=== PATIENT | female | born 1940 | race Caucasian/White ===

== ENCOUNTER 2022-04-29 16:14 | Inpatient (IN) ==
[2022-04-29] MEDS ORDERED: ALBUTEROL HFA 8 GM INHALER INH ONE (16:22)
[2022-04-29] MEDS ORDERED: dexAMETHasone**PF** 10 MG/ML VIAL IV ONE (16:22)
--- NOTE | 2022-04-29 16:46 | Emergency Department Note ---
Impression & Plan Wheezing, Hypoxia, Breathlessness ED Provider Note Provider: Manuel Calero MD DATE OF SERVICE: 04/29/2022 CHIEF COMPLAINT: Shortness of breath, cough, weakness, nausea vomiting and diarrhea HISTORY OF PRESENT ILLNESS: Patient is a 81-year-old female past medical history including Ladd's esophagus, CKD, CAD, hypertension distant former smoker who was at home presents today via ambulance reporting over the past several weeks she has been feeling ill. Due to the last week not well and tested positive for COVID about a week ago. Completed a 5-day course of pack Slo-Bid without real change in symptoms. Several weeks ago was on a course of prednisone as well as doxycycline without real improvement. Has developed some decreased smell as well as nausea vomiting and diarrhea. Cough with some sputum that is brown to yellow. Feeling somewhat wheezy at times. Weak but no falls reported. Denies chest pain or abdominal pain although states she had a little abdominal pain when vomiting earlier. EMS noted she was 90% on room air at her house. She and small skin tear to her left elbow on extrication from the house for EMS this is bandaged and she is without significant pain here. REVIEW OF SYSTEMS: A total of 10 review of systems was obtained and negative except as stated above in the HPI. PAST MEDICAL HISTORY: As noted above MEDICATIONS: Reviewed home medications SOCIAL HISTORY: Distant former smoker, , lives at home with PHYSICAL EXAM: GENERAL: alert and oriented in no acute distress on stretcher somewhat fatigued appearing Head: normocephalic and atraumatic EYES: No injection, discharge or icterus. NECK: Trachea midline. ENT: Mucous membranes pink and moist. LUNGS: Airway patent. No retractions. Breath sounds with some diffuse wheezing HEART: Regular rate and rhythm. No chest wall tenderness ABDOMEN: Soft and non-tender, without guarding or rebound. No masses appreciated SKIN: Acyanotic, warm, dry, without rashes EXTREMITIES: Without swelling, tenderness or deformity NEUROLOGICAL: No focal deficits. No aphasia. No facial droop or slurred speech. EK bpm sinus rhythm occasional PVC. No acute ST segment elevation noted although there is a fair amount of artifact. QTc 451. CONTINUOUS CARDIAC MONITORING: was ordered and showed a heart rate of 90s-100s bpm in normal sinus rhythm to sinus tachycardia with occasional PVC Patient's laboratory studies and imaging reviewed. Differential includes Infection, dehydration, metabolic abnormality, hypo/hyperglycemia, electrolyte disturbance, anemia, hypoxia, cardiac sources, intracerebral event, toxicologic, neurologic, as well as other pathologies. IMPRESSION/MEDICAL DECISION MAKING: Patient has a positive recently for COVID. Is vaccinated. Pack Slo-Bid without improvement. History of some breathing issues developing even before this over the past about a month. Completed doxycycline and steroids without improvement. No significant evidence of fluid overload the extremities. Wheezy upon arrival. Given some albuterol initially as well as some dexamethasone steroid. Chest x-ray and basic labs ordered as well as cultures. No evidence of significant leg swelling and doubt DVT. Given her wheezing and other symptoms that seem more infectious, lower suspicion for PE at this time. Blood work here with leukocytosis of 15.9. Chest x-ray report questions some peripheral densities in the lung bases possibly representing viral pneumonitis. Interestingly COVID test is negative here but was on pack Slo-Bid. Some mild hypokalemia and hyponatremia noted. Stable renal function. Lactate normal. Slight AST ALT elevation also notable. Again could be viral related. Troponin not elevated. No evidence of pancreatitis with normal lipase. With her significant breathing issues leukocytosis and the x-ray findings will cover with doxycycline and ceftriaxone at this time. Patient was eager to go home but becomes hypoxic without supplementation here. Given this discussed with her staying. Updated her daughter via phone. Hospitalist contacted. DIAGNOSIS: Shortness of breath with hypoxia, pneumonia, wheezing DISPOSITION: Hospitalist will evaluate Patient was agreeable with this plan. Past Med/Surg History Medical History CAD (coronary artery disease) GERD (gastroesophageal reflux disease) HLD (hyperlipidemia) HTN (hypertension) Surgical History H/O heart artery stent Family History Other Hypertension Social History Smoking Status: Never smoker Tobacco Type: Cigarettes Hx Alcohol Use: Yes Alcohol type: beer Hx Substance Use: No Preferred Language: Guamanian Communication Ability: Effective Can Cleaner Required: No Beliefs That Will Affect Care: None Current Living Situation: Spouse Other Information That Helps Us Care for You: No Feels Safe at Home: Yes Safety Concerns: Feels Safe At This Time Assistive Devices: Denture - Upper, Denture - Lower and Glasses Allergies Allergies Allergy/AdvReac Type Severity Reaction Status Date / Time Penicillins Allergy Unknown RASH Verified 11/21/20 10:12 adhesive Allergy ITCHY Verified 11/21/20 10:12 Bactrim Allergy RASH Verified 01/06/13 08:59 hydroxyzine Allergy UNKNOWN Verified 11/21/20 10:12 Sulfa (Sulfonamide Allergy RASH Verified 11/21/20 10:12 Antibiotics) sulfamethoxazole [Bactrim] Allergy RASH Verified 11/21/20 10:12 trimethoprim [Bactrim] Allergy RASH Verified 11/21/20 10:12 morphine AdvReac Mild VOMITING Verified 11/21/20 10:12 Home Meds Home Medications Medication Instructions Recorded Confirmed aspirin 81 mg tablet,delayed 81 mg PO PM ##0 12/30/08 04/29/22 release omeprazole 20 mg tablet,delayed 20 mg PO DAILY ##0 12/30/08 04/29/22 release simvastatin 20 mg tablet 20 mg PO PM ##0 12/30/08 04/29/22 acetaminophen 500 mg tablet 500 mg PO Q6H PRN Headache 11/21/20 04/29/22 (Tylenol Extra Strength) atenolol 50 mg tablet 50 mg PO DAILY 04/29/22 04/29/22 escitalopram oxalate 10 mg tablet 10 mg PO DAILY 04/29/22 04/29/22 Previous Rx's Medication Instructions Recorded albuterol sulfate 90 mcg/actuation 2 puff inhalation QID PRN 11/21/20 aerosol inhaler shortness of breath or wheezing #1 inhaler Results & Data (ED) Vital Signs Vital Signs - 24 hr 04/29/22 16:40 04/29/22 16:40 04/29/22 16:40 Temperature 36.7 C Temperature Source Oral Pulse Rate 94 H Pulse Rate [Right Finger] Respiratory Rate 29 H Respiratory Effort / Characteristics Non-Labored Respiratory Depth Normal Normal Respiratory Pattern Regular Regular Blood Pressure 142/72 H Blood Pressure [Right Arm] Blood Pressure Mean 95 Blood Pressure Mean [Right Arm] Pulse Oximetry 97 Oxygen Delivery Method Room Air Room Air Oxygen Flow Rate Sepsis Recent Fever Within 48 Hours No Sepsis New/Unexplained Change in Mental Status N/A Sepsis Action Taken by Nursing No Action Required 04/29/22 17:39 04/29/22 18:17 04/29/22 18:36 Temperature Temperature Source Pulse Rate Pulse Rate [Right Finger] 93 H 91 H 105 H Respiratory Rate 26 H 22 Respiratory Effort / Characteristics Respiratory Depth Respiratory Pattern Blood Pressure Blood Pressure [Right Arm] 130/86 149/81 H Blood Pressure Mean Blood Pressure Mean [Right Arm] 100 103 Pulse Oximetry 96 86 L 95 Oxygen Delivery Method Nasal Cannula Room Air Nasal Cannula Oxygen Flow Rate 2 2 Sepsis Recent Fever Within 48 Hours Sepsis New/Unexplained Change in Mental Status Sepsis Action Taken by Nursing Laboratory Data Result diagrams: 04/29/22 16:29 04/29/22 16:29 Lab Results 04/29/22 04/29/22 04/29/22 Range/Units 16:22 16:29 16:29 WBC 15.98 H (4.8-10.8) K/ul RBC 4.33 (3.93-5.22) M/uL Hgb 13.6 (12.0-16.0) g/dl Hct 39.7 (34.1-44.9) % MCV 91.7 (80.0-100.0) fL MCH 31.4 (25.0-34.0) pg MCHC 34.3 (32.0-36.0) g/dL RDW Std Deviation 41.1 (36.4-46.3) fL RDW Coeff of Remigio 12.2 (11.5-14.5) % Plt Count 388 (130-400) K/uL MPV 9.2 L (9.4-12.3) fL Immature Gran % (Auto) 0.6 % Neut % (Auto) 76.8 % Lymph % (Auto) 12.7 % Crane % (Auto) 8.8 % Eos % (Auto) 0.8 % Baso % (Auto) 0.3 % Neut # (Auto) 12.26 H (1.4-6.5) K/uL Lymph # (Auto) 2.03 (1.2-3.4) K/uL Crane # (Auto) 1.41 H (0.24-0.82) K/uL Eos # (Auto) 0.13 (0-0.50) K/uL Baso # (Auto) 0.05 (0-0.2) K/uL Immature Gran # (Auto) 0.10 H (0.00-0.02) K/uL PT 11.3 (9.0-12.0) Seconds INR 1.1 (0.9-1.1) Sodium (136-145) mmol/L Potassium (3.5-5.1) mmol/L Chloride (98-107) mmol/L Carbon Dioxide (21-32) mmol/L Anion Gap (3-11) BUN (6-23) mg/dl Creatinine (0.6-1.2) mg/dl Est Cr Clr Drug Dosing ml/min Est GFR ( Amer) ml/min Est GFR (Non-Af Amer) ml/min BUN/Creatinine Ratio (10-20) Glucose (70-99(Fasting)) mg/dl Lactate (0.4-2.0) mmol/L Calcium (8.5-10.1) mg/dl Total Bilirubin (0.2-1.0) mg/dl AST (13-39) U/L ALT (7-52) U/L Alkaline Phosphatase (34-104) U/L Total Creatine Kinase (26-192) U/L Troponin I High Sens (0-14) pg/ml C-Reactive Protein (0-0.5) mg/dl Total Protein (6.0-8.3) gm/dl Albumin (3.4-5.0) gm/dl Globulin (2.5-4.0) gm/dl Albumin/Globulin Ratio (0.9-2) Lipase (11-82) U/L Procalcitonin (0-0.5) ng/ml SARS-CoV-2, RNA, NAAT NEGATIVE (NEGATIVE) 04/29/22 04/29/22 04/29/22 Range/Units 16:29 16:29 16:29 WBC (4.8-10.8) K/ul RBC (3.93-5.22) M/uL Hgb (12.0-16.0) g/dl Hct (34.1-44.9) % MCV (80.0-100.0) fL MCH (25.0-34.0) pg MCHC (32.0-36.0) g/dL RDW Std Deviation (36.4-46.3) fL RDW Coeff of Remigio (11.5-14.5) % Plt Count (130-400) K/uL MPV (9.4-12.3) fL Immature Gran % (Auto) % Neut % (Auto) % Lymph % (Auto) % Crane % (Auto) % Eos % (Auto) % Baso % (Auto) % Neut # (Auto) (1.4-6.5) K/uL Lymph # (Auto) (1.2-3.4) K/uL Crane # (Auto) (0.24-0.82) K/uL Eos # (Auto) (0-0.50) K/uL Baso # (Auto) (0-0.2) K/uL Immature Gran # (Auto) (0.00-0.02) K/uL PT (9.0-12.0) Seconds INR (0.9-1.1) Sodium 133 L (136-145) mmol/L Potassium 3.2 L (3.5-5.1) mmol/L Chloride 94 L (98-107) mmol/L Carbon Dioxide 29 (21-32) mmol/L Anion Gap 10 (3-11) BUN 21 (6-23) mg/dl Creatinine 0.90 (0.6-1.2) mg/dl Est Cr Clr Drug Dosing 46.1 ml/min Est GFR ( Amer) 68.5 ml/min Est GFR (Non-Af Amer) 59.1 ml/min BUN/Creatinine Ratio 23.3 H (10-20) Glucose 120 H (70-99(Fasting)) mg/dl Lactate 1.0 (0.4-2.0) mmol/L Calcium 9.2 (8.5-10.1) mg/dl Total Bilirubin 0.5 (0.2-1.0) mg/dl AST 68 H (13-39) U/L ALT 54 H (7-52) U/L Alkaline Phosphatase 43 (34-104) U/L Total Creatine Kinase (26-192) U/L Troponin I High Sens 8.9 (0-14) pg/ml C-Reactive Protein (0-0.5) mg/dl Total Protein 7.7 (6.0-8.3) gm/dl Albumin 3.8 (3.4-5.0) gm/dl Globulin 3.9 (2.5-4.0) gm/dl Albumin/Globulin Ratio 1.0 (0.9-2) Lipase 13 (11-82) U/L Procalcitonin 0.20 (0-0.5) ng/ml SARS-CoV-2, RNA, NAAT (NEGATIVE) 04/29/22 Range/Units 16:29 WBC (4.8-10.8) K/ul RBC (3.93-5.22) M/uL Hgb (12.0-16.0) g/dl Hct (34.1-44.9) % MCV (80.0-100.0) fL MCH (25.0-34.0) pg MCHC (32.0-36.0) g/dL RDW Std Deviation (36.4-46.3) fL RDW Coeff of Remigio (11.5-14.5) % Plt Count (130-400) K/uL MPV (9.4-12.3) fL Immature Gran % (Auto) % Neut % (Auto) % Lymph % (Auto) % Crane % (Auto) % Eos % (Auto) % Baso % (Auto) % Neut # (Auto) (1.4-6.5) K/uL Lymph # (Auto) (1.2-3.4) K/uL Crane # (Auto) (0.24-0.82) K/uL Eos # (Auto) (0-0.50) K/uL Baso # (Auto) (0-0.2) K/uL Immature Gran # (Auto) (0.00-0.02) K/uL PT (9.0-12.0) Seconds INR (0.9-1.1) Sodium (136-145) mmol/L Potassium (3.5-5.1) mmol/L Chloride (98-107) mmol/L Carbon Dioxide (21-32) mmol/L Anion Gap (3-11) BUN (6-23) mg/dl Creatinine (0.6-1.2) mg/dl Est Cr Clr Drug Dosing ml/min Est GFR ( Amer) ml/min Est GFR (Non-Af Amer) ml/min BUN/Creatinine Ratio (10-20) Glucose (70-99(Fasting)) mg/dl Lactate (0.4-2.0) mmol/L Calcium (8.5-10.1) mg/dl Total Bilirubin (0.2-1.0) mg/dl AST (13-39) U/L ALT (7-52) U/L Alkaline Phosphatase (34-104) U/L Total Creatine Kinase 34 (26-192) U/L Troponin I High Sens (0-14) pg/ml C-Reactive Protein 8.59 H (0-0.5) mg/dl Total Protein (6.0-8.3) gm/dl Albumin (3.4-5.0) gm/dl Globulin (2.5-4.0) gm/dl Albumin/Globulin Ratio (0.9-2) Lipase (11-82) U/L Procalcitonin (0-0.5) ng/ml SARS-CoV-2, RNA, NAAT (NEGATIVE) Administered Medications Albuterol (Albuterol 0.083% Nebu Soln 3 Ml Vial) 2.5 mg NEB Q4R LUPE; Protocol Stop: 05/29/22 22:59 Last Admin: 04/29/22 22:54 Dose: 2.5 mg Documented By: LG Discontinued Medications Albuterol (Albuterol Hfa 8 Gm Inhaler) 4 puffs INH NOW ONE Stop: 04/29/22 16:23 Last Admin: 04/29/22 16:49 Dose: 4 puffs Documented By: ASW Albuterol (Albut/Ipratrop 3mg/0.5mg Neb 3 Ml Vial) 3 ml NEB NOW STA; Protocol Stop: 04/29/22 17:59 Last Admin: 04/29/22 18:18 Dose: 3 ml Documented By: ASW Dexamethasone Sodium Phosphate (DexamethasonePf 10 Mg/Ml Vial) 6 mg IV NOW ONE Stop: 04/29/22 16:23 Last Admin: 04/29/22 16:49 Dose: 6 mg Documented By: ASW Doxycycline Hyclate (Doxycycline Hyclate 100 Mg Cap) 100 mg PO NOW STA Stop: 04/29/22 17:59 Last Admin: 04/29/22 18:18 Dose: 100 mg Documented By: ASW Ceftriaxone Sodium (Rocephin) 1,000 mg in 50 mls @ 100 mls/hr IV NOW STA Stop: 04/29/22 18:42 Last Infusion: 04/29/22 19:10 Dose: 0 mls/hr Documented By: Admin: 04/29/22 18:38 Dose: 100 mls/hr Documented By: ASW Potassium Chloride (K Charly / Wtr) 10 meq in 100 mls @ 100 mls/hr IV ONE ONE; Protocol Stop: 04/29/22 20:07 Last Infusion: 04/29/22 20:27 Dose: 0 mls/hr Documented By: Admin: 04/29/22 19:18 Dose: 100 mls/hr Documented By: AN Imaging Data Radiologist's Impression: Chest X-Ray 04/29/22 16:22 XR chest 1V portable HISTORY: Shortness of breath, cough, covid COMPARISON: Chest 11/21/2020. FINDINGS: No pneumothorax. No pleural fusions. The heart is normal in size. No evidence for pulmonary edema. There are few small peripheral densities within the lung bases which may represent a viral pneumonitis. IMPRESSION: A few small peripheral densities within the lung bases likely representing a viral pneumonitis. ACT 112: Negative or not required by law. Electronically signed by: Rajeev Clark M.D. 04/29/2022 4:48 PM Discharge Plan Visit Data Chief Complaint: Shortness of Breath/Dyspnea Stated Complaint: SOB ED Provider: Manuel Calero Discharge Problem: Wheezing, Hypoxia, Breathlessness Patient Disposition: Admitted As Inpatient Discharge Instructions Interventions: ED Discharge Assessment Last Done: 04/29/22 21:11
--- NOTE | 2022-04-29 16:51 | XRay Report ---
XR chest 1V portable HISTORY: Shortness of breath, cough, covid COMPARISON: Chest 11/21/2020. FINDINGS: No pneumothorax. No pleural fusions. The heart is normal in size. No evidence for pulmonary edema. There are few small peripheral densities within the lung bases which may represent a viral pn eumonitis. IMPRESSION: A few small peripheral densities within the lung bases likely representing a viral pneumonitis. ACT 112: Negative or not required by law. Electronically signed by: Rajeev Clark M.D. 04/29/2022 4:48 PM
[2022-04-29 16:55] LABS: Basophils # (auto) 0.05 K/uL (0-0.2); Basophils % (auto) 0.3 %; Eosinophils # (auto) 0.13 K/uL (0-0.50); Eosinophils % (auto) 0.8 %; Hematocrit (blood only) 39.7 % (34.1-44.9); Hemoglobin 13.6 g/dl (12.0-16.0); Immature Granulocytes % (auto) 0.6 %; Lymphocytes # (auto) 2.03 K/uL (1.2-3.4); Lymphocytes % (auto) 12.7 %; Mean Corpuscular Hemoglobin 31.4 pg (25.0-34.0); Mean Corpuscular Hgb Conc 34.3 g/dL (32.0-36.0); Mean Corpuscular Volume 91.7 fL (80.0-100.0); Mean Platelet Volume 9.2 fL (9.4-12.3); Monocytes # (auto) 1.41 K/uL (0.24-0.82); Monocytes % (auto) 8.8 %; Neutrophils # (auto) 12.26 K/uL (1.4-6.5); Neutrophils % (auto) 76.8 %; Platelet Count 388 K/uL (130-400); RDW Coefficient of Variation 12.2 % (11.5-14.5); RDW Standard Deviation 41.1 fL (36.4-46.3); Red Blood Count 4.33 M/uL (3.93-5.22); White Blood Count 15.98 K/ul (4.8-10.8)
[2022-04-29 17:02] LABS: INR 1.1 (0.9-1.1); Prothrombin Time 11.3 Seconds (9.0-12.0)
[2022-04-29 17:13] LABS: Albumin Level 3.8 gm/dl (3.4-5.0); BUN Creatinine Ratio 23.3 (10-20); Bilirubin,Total 0.5 mg/dl (0.2-1.0); Calcium 9.2 mg/dl (8.5-10.1); Creatinine Clr Calc Pharmacy 46.1 ml/min; Est GFR (African American) 68.5 ml/min; Est GFR (Non-African American) 59.1 ml/min; Globulin 3.9 gm/dl (2.5-4.0); Potassium 3.2 mmol/L (3.5-5.1); Total Protein 7.7 gm/dl (6.0-8.3)
[2022-04-29 17:18] LABS: Troponin I High Sensitivity 8.9 pg/ml (0-14)
[2022-04-29 17:55] LABS: C Reactive Protein 8.59 mg/dl (0-0.5)
[2022-04-29] MEDS ORDERED: ALBUT/IPRATROP 3MG/0.5MG NEB 3 ML VIAL NEB STA (17:58)
[2022-04-29] MEDS ORDERED: DOXYCYCLINE HYCLATE 100 MG CAP PO STA (17:58)
[2022-04-29] MEDS ORDERED: cefTRIAXone SODIUM 1,000 MG/50 ML BAG IV STA (18:13)
[2022-04-29] MEDS ORDERED: POTASSIUM CHLORIDE / WTR 10 MEQ/100 ML PLCT IV ONE (19:08)
--- NOTE | 2022-04-29 19:30 | History & Physical Report ---
Date of Service April 29, 2022 Assessment & Plan (1) Acute respiratory failure: (2) Electrolyte abnormality: (3) Elevated LFTs: (4) CAD (coronary artery disease): (5) HTN (hypertension): (6) HLD (hyperlipidemia): (7) GERD (gastroesophageal reflux disease): Plan Acute respiratory failure: ---- likely 2/2 COVID pneumonia -pt tested positive for COVID on 04/21 s/p paxlovid -CXR showed few small peripheral densities likely viral pneumonitis -pts COVID PCR is neg in the hospital. However due to elevated CRP (8.59), age and recent hx of COVID will treat for COVID pneumonia -Decadron 6mg q24hr -Procal is neg therefore will discontinue abx -repeat CRp -will do albuterol q4hr nebs, mucinex BID, flutter valve QID -will put pt on isolation -Lovenox for DVT ppx Electrolytes abnormalities and elevated LFTs: -hypoK+: repleted -Elevated LFTs: no abd symptoms, likely 2/2 recent paxlovid use -will repeat CMP CAD s/p stent: -continue statin, aspirin HTN/Anxiety/HLD/GERD: -continue home meds Diet: Heart healthy DVT PPx: Lovenox Code Status: FULL CODE Emergency Contact: : Donaldo [phone] History of Present Illness Chief Complaint: cough and SOB Primary Care Provider: Best Simpson MD Pt is a 81 y/o F with hx of CAD s/p Stent, CKD III, HTN, HLD, DDD, HLD, GERD came to the ER with worsening cough and SOB. Per pt she has been having cough for almost 3 weeks. About 8 days ago her cough got worse therefore she did home COVID test. Which came back positive and started on paxlovid by PCP. Pt completed the paxlovid. However her SOB got worse today. At bedside: she complained of cough, and SOB. Denied any abd pain, N/V, diarrhea or rash. Per pt her home COVID test was positive on 04/21 therefore received paxlovid from PCP -completed 3 days ago Allergies Allergy/AdvReac Type Severity Reaction Status Date / Time Penicillins Allergy Unknown RASH Verified 11/21/20 10:12 adhesive Allergy ITCHY Verified 11/21/20 10:12 Bactrim Allergy RASH Verified 01/06/13 08:59 hydroxyzine Allergy UNKNOWN Verified 11/21/20 10:12 Sulfa (Sulfonamide Allergy RASH Verified 11/21/20 10:12 Antibiotics) sulfamethoxazole [Bactrim] Allergy RASH Verified 11/21/20 10:12 trimethoprim [Bactrim] Allergy RASH Verified 11/21/20 10:12 morphine AdvReac Mild VOMITING Verified 11/21/20 10:12 Home Medications Medication Instructions Recorded Confirmed Type aspirin 81 mg tablet,delayed 81 mg PO PM ##0 12/30/08 04/29/22 History release omeprazole 20 mg tablet,delayed 20 mg PO DAILY ##0 12/30/08 04/29/22 History release simvastatin 20 mg tablet 20 mg PO PM ##0 12/30/08 04/29/22 History acetaminophen 500 mg tablet 500 mg PO Q6H PRN Headache 11/21/20 04/29/22 History (Tylenol Extra Strength) albuterol sulfate 90 mcg/actuation 2 puff inhalation QID PRN 11/21/20 04/29/22 Rx aerosol inhaler shortness of breath or wheezing #1 inhaler atenolol 50 mg tablet 50 mg PO DAILY 04/29/22 04/29/22 History escitalopram oxalate 10 mg tablet 10 mg PO DAILY 04/29/22 04/29/22 History Past Med/Surg History Medical History CAD (coronary artery disease) GERD (gastroesophageal reflux disease) HLD (hyperlipidemia) HTN (hypertension) Surgical History H/O heart artery stent Family History Other Hypertension Social History Smoking Status: Never smoker Tobacco Type: Cigarettes Preferred Language: Lithuanian Feels Safe at Home: Yes Review of Systems Review of Systems: At least 10 Review of systems were reviewed and all negative except as indicated in HPI Physical Exam Physical Exam: General:.NC in place and pt was in mild acute respiratory distress, well nourished, average body habitus HEENT:. Normocephalic and atraumatic, Normal Conjunctiva, EOMI, Sclera is non- icteric Lungs:.fair air entry b/l with diffuse respiratory wheezing and rales Heart:. Normal S1, S2, no murmur Abdominal:. ND, Soft, NT MSK:. No deformities of UE and LE, No leg edema Psych:. AAOx3, normal affect Results & Data Results & Data ([facility]) Vital Signs (Past 12 Hours) Vital Signs Temp Pulse Pulse Resp BP BP Pulse Ox 04/29/22 18:36 105 H 22 149/81 H 95 04/29/22 18:17 91 H 22 86 L 04/29/22 17:39 93 H 26 H 130/86 96 04/29/22 16:40 04/29/22 16:40 36.7 C 94 H 29 H 142/72 H 97 O2 Del Method O2 Flow Rate 04/29/22 18:36 Nasal Cannula 2 04/29/22 18:17 Room Air 04/29/22 17:39 Nasal Cannula 2 04/29/22 16:40 Room Air 04/29/22 16:40 Room Air Laboratory Results Short CBC 04/29/22 Range/Units 16:29 WBC 15.98 H (4.8-10.8) K/ul Hgb 13.6 (12.0-16.0) g/dl Hct 39.7 (34.1-44.9) % Plt Count 388 (130-400) K/uL BMP 04/29/22 16:29 Sodium 133 L Potassium 3.2 L Chloride 94 L Carbon Dioxide 29 BUN 21 Creatinine 0.90 Glucose 120 H Calcium 9.2 Cardiac Enzymes 04/29/22 Range/Units 16:29 Total Creatine Kinase 34 (26-192) U/L Liver Function 04/29/22 Range/Units 16:29 Total Bilirubin 0.5 (0.2-1.0) mg/dl AST 68 H (13-39) U/L ALT 54 H (7-52) U/L Alkaline Phosphatase 43 (34-104) U/L Albumin 3.8 (3.4-5.0) gm/dl Diagnostic Findings Chest X-Ray 04/29/22 16:22 XR chest 1V portable HISTORY: Shortness of breath, cough, covid COMPARISON: Chest 11/21/2020. FINDINGS: No pneumothorax. No pleural fusions. The heart is normal in size. No evidence for pulmonary edema. There are few small peripheral densities within the lung bases which may represent a viral pneumonitis. IMPRESSION: A few small peripheral densities within the lung bases likely representing a viral pneumonitis. ACT 112: Negative or not required by law. Electronically signed by: Rajeev Clark M.D. 04/29/2022 4:48 PM Code Status & VTE Plan VTE Prophylaxis Plan VTE Prophylaxis will be ordered: Yes
[2022-04-29] MEDS ORDERED: ACETAMINOPHEN 325 MG TAB PO PRN (21:21)
[2022-04-29] MEDS ORDERED: PNEUMOCOCCAL POLYSACCHARIDES 25 MCG/0.5 ML VIAL/SYR IM ONE (22:08)
[2022-04-29] MEDS: ALBUTEROL 0.083% NEBU SOLN 3 ML VIAL NEB SCH (22:54)
[2022-04-29] MEDS: ENOXAPARIN INJ 40 MG/0.4 ML SYR SQ SCH (23:13)
[2022-04-29] MEDS: SIMVASTATIN 20 MG TAB PO SCH (23:13)
[2022-04-29] MEDS: ASPIRIN 81 MG ECTAB PO SCH (23:13)
[2022-04-29] MEDS: guaiFENesin 600 MG TABCR PO SCH (23:13)
[2022-04-30 02:45] LABS: Appearance Urine Turbid (Clear); Bacteria Urine Automated 1+ (Negative); Bilirubin Urine Negative (Negative); Blood Urine 1+ (Negative); Color Urine Yellow; Epithelial Cell Urine Auto >30 /lpf (0-5); Glucose Urine UA Negative (Negative); Ketones Urine 2+ (Negative); Leukocyte Esterase Urine 3+ (Negative); Nitrite Urine Positive (Negative); Protein Urine 2+ (Negative); RBC Urine Automated 0-4 /hpf (0-4); Specific Gravity Urine 1.022 (1.000-1.030); Urobilinogen Urine Negative (Negative); WBC Urine Automated >30 /hpf (0-5); pH Urine 5.5 (4.5-7.5)
[2022-04-30] MEDS: ALBUTEROL 0.083% NEBU SOLN 3 ML VIAL NEB SCH ×5 (02:47→19:04)
[2022-04-30 04:54] LABS: Basophils # (auto) 0.01 K/uL (0-0.2); Basophils % (auto) 0.1 %; Hematocrit (blood only) 36.6 % (34.1-44.9); Hemoglobin 12.4 g/dl (12.0-16.0); Lymphocytes # (auto) 0.81 K/uL (1.2-3.4); Lymphocytes % (auto) 7.9 %; Mean Corpuscular Hgb Conc 33.9 g/dL (32.0-36.0); Mean Corpuscular Volume 91.5 fL (80.0-100.0); Mean Platelet Volume 9.4 fL (9.4-12.3); Monocytes # (auto) 0.13 K/uL (0.24-0.82); Monocytes % (auto) 1.3 %; Neutrophils % (auto) 89.7 %; Platelet Count 367 K/uL (130-400); RDW Coefficient of Variation 12.2 % (11.5-14.5); White Blood Count 10.25 K/ul (4.8-10.8)
[2022-04-30 05:13] LABS: Albumin Level 3.5 gm/dl (3.4-5.0); BUN Creatinine Ratio 23.4 (10-20); Bilirubin,Total 0.4 mg/dl (0.2-1.0); C Reactive Protein 8.93 mg/dl (0-0.5); Creatinine Clr Calc Pharmacy 53.8 ml/min; Est GFR (African American) 82.8 ml/min; Est GFR (Non-African American) 71.4 ml/min; Globulin 3.5 gm/dl (2.5-4.0); Magnesium 1.3 mg/dl (1.7-2.4); Potassium 3.4 mmol/L (3.5-5.1)
[2022-04-30] MEDS ORDERED: POTASSIUM CHLORIDE CRTAB 20 MEQ TABCR PO STA (07:57)
[2022-04-30] MEDS: PANTOprazole 40 MG TAB PO SCH (08:56)
[2022-04-30] MEDS: ESCITALOPRAM OXALATE 10 MG TAB PO SCH (08:57)
[2022-04-30] MEDS: guaiFENesin 600 MG TABCR PO SCH ×2 (08:57→20:08)
[2022-04-30] MEDS ORDERED: ATENOLOL 50 MG TABLET PO SCH (09:00)
[2022-04-30] MEDS ORDERED: HYDROcodone/HOMATROPINE SYRUP 5MG/1.5MG 5ML UDP PO PRN (10:34)
[2022-04-30] MEDS ORDERED: METOPROLOL TARTRATE 25 MG TAB PO STA (10:35)
--- NOTE | 2022-04-30 11:13 | Electrocardiogram Report ---
Test Reason : Blood Pressure : / mmHG Vent. Rate : 099 BPM Atrial Rate : 099 BPM P-R Int : 158 ms QRS Dur : 076 ms QT Int : 352 ms P-R-T Axes : 081 064 052 degrees QTc Int : 451 ms Poor data quality, interpretation may be adversely affected Sinus rhythm with occasional Premature ventricular complexes Otherwise normal ECG When compared with ECG of 21-NOV-2020 10:21, Premature ventricular complexes are now Present Criteria for Septal infarct are no longer Present Confirmed by Tyson Goddard ([id number]) on 04/30/2022 11:12:49 AM Referred By: REFERRED SELF Confirmed By:Tyson Goddard
--- NOTE | 2022-04-30 11:27 | Electrocardiogram Report ---
Test Reason : Blood Pressure : / mmHG Vent. Rate : 100 BPM Atrial Rate : 100 BPM P-R Int : 180 ms QRS Dur : 082 ms QT Int : 362 ms P-R-T Axes : 078 060 071 degrees QTc Int : 466 ms Normal sinus rhythm Possible Old Septal infarct Abnormal ECG When compared with ECG of 29-APR-2022 16:23, Premature ventricular complexes are no longer Present Borderline Criteria for Septal infarct is now Present Confirmed by Tyson Goddard ([id number]) on 04/30/2022 11:26:54 AM Referred By: REFERRED SELF Confirmed By:Tyson Goddard
[2022-04-30 12:07] LABS: Influenza A virus by PCR Negative (Neg); Influenza B virus by PCR Negative (Neg); RSV by PCR Negative (Neg)
[2022-04-30 12:22] LABS: SARS CoV2 RNA(COVID-19)Cepheid POSITIVE (Negative)
--- NOTE | 2022-04-30 13:32 | Hospitalist Progress Note ---
Date of Service April 30, 2022 Assessment & Plan (1) Acute respiratory failure: (2) Electrolyte abnormality: (3) Elevated LFTs: (4) CAD (coronary artery disease): (5) HTN (hypertension): (6) HLD (hyperlipidemia): (7) GERD (gastroesophageal reflux disease): Plan Acute respiratory failure: COVID-19 virus infection positive on 04/21 and today 04/30 She is not vaccinated ---- likely 2/2 COVID pneumonia -pt tested positive for COVID on 04/21 s/p paxlovid -CXR showed few small peripheral densities likely viral pneumonitis -pts COVID PCR is neg in the hospital. However due to elevated CRP (8.59), age and recent hx of COVID will treat for COVID pneumonia -Decadron 6mg q24hr -Procal is neg therefore will discontinue abx -will do albuterol q4hr nebs, mucinex BID, flutter valve QID -will put pt on isolation -We will give Hycodan for cough suppression -Has been saturating normally on 2 L of nasal cannula Electrolytes abnormalities and elevated LFTs: -hypoK+: repleted -Elevated LFTs: no abd symptoms, likely 2/2 recent paxlovid use -Remains hypokalemic and hypomagnesemic and will be supplemented CAD s/p stent: -continue statin, aspirin HTN/Anxiety/HLD/GERD: -continue home meds Diet: Heart healthy DVT PPx: Lovenox Code Status: FULL CODE Emergency Contact: : Donaldo [phone] Admission and Anticipated Discharge Date Admission Date: April 29, 2022 Subjective 04/30/2022 The patient was seen and examined in telemetry unit and in the COVID room She has been complaining of cough but no shortness of breath Noted to have tachycardia in the morning Review of Systems Review of Systems: All systems reviewed and are unremarkable except as noted below Physical Exam Physical Exam: Lying in bed comfortably but remains very anxious without any shortness of breath Constitutional: well developed, well nourished, + ill appearing and + obese Eyes: PERRL, conjunctivae normal, anicteric sclerae ENMT: external ear and nose normal, oropharynx normal Neck: trachea midline, no thyromegaly Respiratory: no respiratory distress Auscultation: + diminished lung sounds; no crackles and no wheezes Cardiovascular: Rate/Rhythm: regular rate and regular rhythm; not tachycardic Heart Sounds: normal S1 and normal S2; no murmur Extremities: no edema Gastrointestinal (Abdomen): Inspection/Auscultation: normal bowel sounds; abdomen not distended Percussion/Palpation: abdomen soft; abdomen nontender Musculoskeletal: No acute arthritis in any joint Neurologic: normal touch/pain/proprioception and moves all extremities; no focal motor deficits Psychiatric: A+Ox3, euthymic affect Lymphatic: no cervical or axillary lymphadenopathy Results & Data Results & Data ([facility]) Vital Signs (Past 12 Hours) Vital Signs Temp Pulse Pulse Resp BP Pulse Ox O2 Del Method 04/30/22 12:12 36.6 C 87 18 119/73 96 Nasal Cannula 04/30/22 12:02 90 18 94 Nasal Cannula 04/30/22 08:55 Nasal Cannula 04/30/22 08:51 36.7 C 126 H 152/74 H 93 Nasal Cannula 04/30/22 06:08 94 H 04/30/22 07:11 105 H 18 93 Nasal Cannula 04/30/22 02:48 90 18 92 Nasal Cannula 04/30/22 02:36 36.5 C 98 H 20 156/77 H 94 Nasal Cannula O2 Flow Rate 04/30/22 12:12 2 04/30/22 12:02 2 04/30/22 08:55 2 04/30/22 08:51 2 04/30/22 06:08 04/30/22 07:11 2 04/30/22 02:48 2 04/30/22 02:36 2 Laboratory Results Short CBC 04/29/22 04/30/22 Range/Units 16:29 04:31 WBC 15.98 H 10.25 (4.8-10.8) K/ul Hgb 13.6 12.4 (12.0-16.0) g/dl Hct 39.7 36.6 (34.1-44.9) % Plt Count 388 367 (130-400) K/uL BMP 04/29/22 04/30/22 16:29 04:31 Sodium 133 L 136 Potassium 3.2 L 3.4 L Chloride 94 L 95 L Carbon Dioxide 29 27 BUN 21 18 Creatinine 0.90 0.77 Glucose 120 H 198 H Calcium 9.2 9.0 Cardiac Enzymes 04/29/22 Range/Units 16:29 Total Creatine Kinase 34 (26-192) U/L Liver Function 04/29/22 04/30/22 Range/Units 16:29 04:31 Total Bilirubin 0.5 0.4 (0.2-1.0) mg/dl AST 68 H 54 H (13-39) U/L ALT 54 H 54 H (7-52) U/L Alkaline Phosphatase 43 41 (34-104) U/L Albumin 3.8 3.5 (3.4-5.0) gm/dl Urine 04/30/22 Range/Units 02:32 Urine Color Yellow Urine Appearance Turbid A (Clear) Urine pH 5.5 (4.5-7.5) Ur Specific [place] 1.022 (1.000-1.030) Urine Protein 2+ H (Negative) Urine Glucose (UA) Negative (Negative) Medications Administered Current Inpatient Medications Acetaminophen (Acetaminophen 325 Mg Tab) 650 mg PO Q4H PRN PRN Reason: Pain or Fever Stop: 05/29/22 21:20 Albuterol (Albuterol 0.083% Nebu Soln 3 Ml Vial) 2.5 mg NEB Q4R LUPE; Protocol Stop: 05/29/22 22:59 Last Admin: 04/30/22 12:01 Dose: 2.5 mg Aspirin (Aspirin 81 Mg Ectab) 81 mg PO PM LUPE Stop: 05/29/22 21:20 Last Admin: 04/29/22 23:13 Dose: 81 mg Enoxaparin Sodium (Enoxaparin Inj 40 Mg/0.4 Ml Syr) 40 mg SQ Q24H LUPE Stop: 05/29/22 21:59 Last Admin: 04/29/22 23:13 Dose: 40 mg Escitalopram Oxalate (Escitalopram Oxalate 10 Mg Tab) 10 mg PO DAILY LUPE Stop: 05/30/22 08:59 Last Admin: 04/30/22 08:57 Dose: 10 mg Guaifenesin (Guaifenesin 600 Mg Tabcr) 1,200 mg PO Q12 LUPE Stop: 05/29/22 21:20 Last Admin: 04/30/22 08:57 Dose: 1,200 mg Hydrocodone Bit/Homatropine Methylb (Hydrocodone/Homatropine Syrup 5mg/1.5mg 5ml Udp) 5 ml PO Q6H PRN PRN Reason: Cough Stop: 05/14/22 10:33 Dexamethasone 6 mg/ Syringe 1.5 mls @ 1 mls/min IV Q24H LUPE Stop: 05/30/22 18:59 Metoprolol Succinate (Metoprolol Succ 25mg Ext Rel Tab) 25 mg PO QAM LUPE Stop: 05/31/22 08:59 Pantoprazole Sodium (Pantoprazole 40 Mg Tab) 40 mg PO DAILY LUPE Stop: 05/30/22 08:59 Last Admin: 04/30/22 08:56 Dose: 40 mg Simvastatin (Simvastatin 20 Mg Tab) 20 mg PO PM LUPE Stop: 05/29/22 21:20 Last Admin: 04/29/22 23:13 Dose: 20 mg
[2022-04-30] MEDS: MAGNESIUM SULFATE / D5W 1 GM/100 ML BAG IV SCH ×2 (14:33→16:17)
[2022-04-30] MEDS ORDERED: dexAMETHasone 6 MG in SYRINGE 0 ML IV SCH (19:00)
[2022-04-30] MEDS ORDERED: ALBUTEROL 0.083% NEBU SOLN 3 ML VIAL NEB PRN (19:46)
[2022-04-30] MEDS: ASPIRIN 81 MG ECTAB PO SCH (20:08)
[2022-04-30] MEDS: SIMVASTATIN 20 MG TAB PO SCH (20:08)
[2022-04-30] MEDS: ENOXAPARIN INJ 40 MG/0.4 ML SYR SQ SCH (21:26)
[2022-05-01 06:11] LABS: Basophils # (auto) 0.02 K/uL (0-0.2); Basophils % (auto) 0.1 %; Hematocrit (blood only) 34.7 % (34.1-44.9); Hemoglobin 11.9 g/dl (12.0-16.0); Immature Granulocytes # (auto) 0.18 K/uL (0.00-0.02); Immature Granulocytes % (auto) 1.1 %; Lymphocytes # (auto) 1.13 K/uL (1.2-3.4); Lymphocytes % (auto) 6.8 %; Mean Corpuscular Hemoglobin 31.3 pg (25.0-34.0); Mean Corpuscular Hgb Conc 34.3 g/dL (32.0-36.0); Mean Corpuscular Volume 91.3 fL (80.0-100.0); Mean Platelet Volume 9.7 fL (9.4-12.3); Monocytes # (auto) 0.51 K/uL (0.24-0.82); Monocytes % (auto) 3.1 %; Neutrophils % (auto) 88.9 %; Platelet Count 376 K/uL (130-400); RDW Coefficient of Variation 12.3 % (11.5-14.5); RDW Standard Deviation 41.2 fL (36.4-46.3); White Blood Count 16.54 K/ul (4.8-10.8)
[2022-05-01 06:46] LABS: BUN Creatinine Ratio 28.9 (10-20); Calcium 8.8 mg/dl (8.5-10.1); Creatinine Clr Calc Pharmacy 49.9 ml/min; Est GFR (African American) 75.6 ml/min; Est GFR (Non-African American) 65.2 ml/min; Magnesium 1.9 mg/dl (1.7-2.4); Phosphorus 2.4 mg/dl (2.5-4.9); Potassium 4.5 mmol/L (3.5-5.1)
[2022-05-01] MEDS: ESCITALOPRAM OXALATE 10 MG TAB PO SCH (08:39)
[2022-05-01] MEDS: guaiFENesin 600 MG TABCR PO SCH (08:39)
[2022-05-01] MEDS: PANTOprazole 40 MG TAB PO SCH (08:39)
[2022-05-01] MEDS ORDERED: METOPROLOL SUCC 25MG EXT REL TAB PO SCH (09:00)
--- NOTE | 2022-05-01 15:44 | Hospitalist Progress Note ---
Date of Service May 01, 2022 Assessment & Plan (1) Acute respiratory failure: (2) Electrolyte abnormality: (3) Elevated LFTs: (4) CAD (coronary artery disease): (5) HTN (hypertension): (6) HLD (hyperlipidemia): (7) GERD (gastroesophageal reflux disease): Plan Acute respiratory failure: COVID-19 virus infection positive on 04/21 and today 04/30 She is not vaccinated ---- likely 2/2 COVID pneumonia -pt tested positive for COVID on 04/21 s/p paxlovid -CXR showed few small peripheral densities likely viral pneumonitis -pts COVID PCR is neg in the hospital. However due to elevated CRP (8.59), age and recent hx of COVID will treat for COVID pneumonia -Decadron 6mg q24hr -Procal is neg therefore will discontinue abx -will do albuterol q4hr nebs, mucinex BID, flutter valve QID -will put pt on isolation -We will give Hycodan for cough suppression -Has been saturating normally on room air without any symptoms of cough and no shortness of breath -She has been ambulating in the room without any difficulties -Will have a two-step O2 saturation test prior to discharge this afternoon Electrolytes abnormalities and elevated LFTs: -hypoK+: repleted -Elevated LFTs: no abd symptoms, likely 2/2 recent paxlovid use -Remains hypokalemic and hypomagnesemic and will be supplemented -We will give oral phosphate supplement CAD s/p stent: -continue statin, aspirin HTN/Anxiety/HLD/GERD: -continue home meds Diet: Heart healthy DVT PPx: Lovenox Code Status: FULL CODE Emergency Contact: : Donaldo [phone] Discharge this afternoon Admission and Anticipated Discharge Date Admission Date: April 29, 2022 Subjective 04/30/2022 The patient was seen and examined in telemetry unit and in the COVID room She has been complaining of cough but no shortness of breath Noted to have tachycardia in the morning 05/01/2022 The patient was seen and examined in telemetry unit and in the COVID room She has been feeling much better and denies any cough and no shortness of breath She has been saturating normally on room air Wants to go home Review of Systems Review of Systems: All systems reviewed and are unremarkable except as noted below Physical Exam Physical Exam: Lying in bed comfortably but remains very anxious without any shortness of breath Constitutional: well developed, well nourished, + ill appearing and + obese Eyes: PERRL, conjunctivae normal, anicteric sclerae ENMT: external ear and nose normal, oropharynx normal Neck: trachea midline, no thyromegaly Respiratory: no respiratory distress Auscultation: + diminished lung sounds; no crackles and no wheezes Cardiovascular: Rate/Rhythm: regular rate and regular rhythm; not tachycardic Heart Sounds: normal S1 and normal S2; no murmur Extremities: no edema Gastrointestinal (Abdomen): Inspection/Auscultation: normal bowel sounds; abdomen not distended Percussion/Palpation: abdomen soft; abdomen nontender Musculoskeletal: No acute arthritis in any joint Neurologic: normal touch/pain/proprioception and moves all extremities; no focal motor deficits Psychiatric: A+Ox3, euthymic affect Lymphatic: no cervical or axillary lymphadenopathy Results & Data Results & Data ([facility]) Vital Signs (Past 12 Hours) Vital Signs Temp Pulse Resp BP Pulse Ox O2 Del Method 05/01/22 12:31 36.6 C 79 18 151/72 H 93 Room Air 05/01/22 08:30 Room Air 05/01/22 08:36 36.4 C L 80 17 129/74 93 Room Air 05/01/22 03:45 36.8 C 83 18 152/69 H 93 Room Air Laboratory Results Short CBC 05/01/22 Range/Units 05:41 WBC 16.54 H (4.8-10.8) K/ul Hgb 11.9 L (12.0-16.0) g/dl Hct 34.7 (34.1-44.9) % Plt Count 376 (130-400) K/uL BMP 05/01/22 05:41 Sodium 134 L Potassium 4.5 D Chloride 99 Carbon Dioxide 29 BUN 24 H Creatinine 0.83 Glucose 160 H Calcium 8.8 Medications Administered Current Inpatient Medications Acetaminophen (Acetaminophen 325 Mg Tab) 650 mg PO Q4H PRN PRN Reason: Pain or Fever Stop: 05/29/22 21:20 Albuterol (Albuterol 0.083% Nebu Soln 3 Ml Vial) 2.5 mg NEB Q4R PRN; Protocol PRN Reason: Shortness Of Breath Or Wheezing Stop: 05/29/22 22:59 Aspirin (Aspirin 81 Mg Ectab) 81 mg PO PM LUPE Stop: 05/29/22 21:20 Last Admin: 04/30/22 20:08 Dose: 81 mg Enoxaparin Sodium (Enoxaparin Inj 40 Mg/0.4 Ml Syr) 40 mg SQ Q24H LUPE Stop: 05/29/22 21:59 Last Admin: 04/30/22 21:26 Dose: 40 mg Escitalopram Oxalate (Escitalopram Oxalate 10 Mg Tab) 10 mg PO DAILY LUPE Stop: 05/30/22 08:59 Last Admin: 05/01/22 08:39 Dose: 10 mg Guaifenesin (Guaifenesin 600 Mg Tabcr) 1,200 mg PO Q12 LUPE Stop: 05/29/22 21:20 Last Admin: 05/01/22 08:39 Dose: 1,200 mg Hydrocodone Bit/Homatropine Methylb (Hydrocodone/Homatropine Syrup 5mg/1.5mg 5ml Udp) 5 ml PO Q6H PRN PRN Reason: Cough Stop: 05/14/22 10:33 Dexamethasone 6 mg/ Syringe 1.5 mls @ 1 mls/min IV Q24H LUPE Stop: 05/30/22 18:59 Last Admin: 04/30/22 20:08 Dose: 1 mls/min Metoprolol Succinate (Metoprolol Succ 25mg Ext Rel Tab) 25 mg PO QAM LUPE Stop: 05/31/22 08:59 Last Admin: 05/01/22 08:39 Dose: 25 mg Pantoprazole Sodium (Pantoprazole 40 Mg Tab) 40 mg PO DAILY LUPE Stop: 05/30/22 08:59 Last Admin: 05/01/22 08:39 Dose: 40 mg Simvastatin (Simvastatin 20 Mg Tab) 20 mg PO PM LUPE Stop: 05/29/22 21:20 Last Admin: 04/30/22 20:08 Dose: 20 mg
[2022-05-01] MEDS ORDERED: POT PHOSPHATE MONOBASIC W/ SOD TAB PO SCH (21:00)
--- NOTE | 2022-05-02 07:14 | Discharge Summary ---
Date of Service May 02, 2022 Admission HPI Per Admitting Provider Pt is a 81 y/o F with hx of CAD s/p Stent, CKD III, HTN, HLD, DDD, HLD, GERD came to the ER with worsening cough and SOB. Per pt she has been having cough for almost 3 weeks. About 8 days ago her cough got worse therefore she did home COVID test. Which came back positive and started on paxlovid by PCP. Pt completed the paxlovid. However her SOB got worse today. At bedside: she complained of cough, and SOB. Denied any abd pain, N/V, diarrhea or rash. Per pt her home COVID test was positive on 04/21 therefore received paxlovid from PCP -completed 3 days ago Admission Exam Per Admitting Provider Physical Exam: General:.NC in place and pt was in mild acute respiratory distress, well nourished, average body habitus HEENT:.Normocephalic and atraumatic, Normal Conjunctiva, EOMI, Sclera is non- icteric Lungs:.fair air entry b/l with diffuse respiratory wheezing and rales Heart:.Normal S1, S2, no murmur Abdominal:.ND, Soft, NT MSK:.No deformities of UE and LE, No leg edema Psych:.AAOx3, normal affect Principal Diagnosis Acute respiratory failure secondary to COVID-19 virus infection, CAD status post stent, hypertension Discharge Exam Lying in bed comfortably but remains very anxious without any shortness of breath Constitutional well developed, well nourished, + ill appearing and + obese Eyes PERRL, conjunctivae normal, anicteric sclerae ENMT external ear and nose normal, oropharynx normal Neck trachea midline, no thyromegaly Respiratory no respiratory distress Auscultation: + diminished lung sounds; no crackles and no wheezes Cardiovascular Rate/Rhythm: regular rate and regular rhythm; not tachycardic Heart Sounds: normal S1 and normal S2; no murmur Extremities: no edema Gastrointestinal (Abdomen) Inspection/Auscultation: normal bowel sounds; abdomen not distended Percussion/Palpation: abdomen soft; abdomen nontender Neurologic normal touch/pain/proprioception and moves all extremities; no focal motor deficits Psychiatric A+Ox3, euthymic affect Lymphatic no cervical or axillary lymphadenopathy Discharge Data Allergies Allergy/AdvReac Type Severity Reaction Status Date / Time Penicillins Allergy Unknown RASH Verified 11/21/20 10:12 adhesive Allergy ITCHY Verified 11/21/20 10:12 Bactrim Allergy RASH Verified 01/06/13 08:59 hydroxyzine Allergy UNKNOWN Verified 11/21/20 10:12 Sulfa (Sulfonamide Allergy RASH Verified 11/21/20 10:12 Antibiotics) sulfamethoxazole [Bactrim] Allergy RASH Verified 11/21/20 10:12 trimethoprim [Bactrim] Allergy RASH Verified 11/21/20 10:12 morphine AdvReac Mild VOMITING Verified 11/21/20 10:12 Consultations 04/29/22 18:36 ED Decision to Admit Stat Hospital Course (1) Acute respiratory failure: (2) Electrolyte abnormality: (3) Elevated LFTs: (4) CAD (coronary artery disease): (5) HTN (hypertension): (6) HLD (hyperlipidemia): (7) GERD (gastroesophageal reflux disease): Plan Acute respiratory failure: COVID-19 virus infection positive on 04/21 and today 04/30 She is not vaccinated ---- likely 2/2 COVID pneumonia -pt tested positive for COVID on 04/21 s/p paxlovid -CXR showed few small peripheral densities likely viral pneumonitis -pts COVID PCR is neg in the hospital. However due to elevated CRP (8.59), age and recent hx of COVID will treat for COVID pneumonia -Decadron 6mg q24hr -Procal is neg therefore will discontinue abx -will do albuterol q4hr nebs, mucinex BID, flutter valve QID -will put pt on isolation -We will give Hycodan for cough suppression -Has been saturating normally on room air without any symptoms of cough and no shortness of breath -She has been ambulating in the room without any difficulties -Will have a two-step O2 saturation test prior to discharge this afternoon Electrolytes abnormalities and elevated LFTs: -hypoK+: repleted -Elevated LFTs: no abd symptoms, likely 2/2 recent paxlovid use -Remains hypokalemic and hypomagnesemic and will be supplemented -We will give oral phosphate supplement CAD s/p stent: -continue statin, aspirin HTN/Anxiety/HLD/GERD: -continue home meds Diet: Heart healthy DVT PPx: Lovenox Code Status: FULL CODE Emergency Contact: : Donaldo [phone] Discharge this afternoon Total Time Total Time Spent Total Time Spent (In Minutes): 35 minutes Discharge Plan Discharge Items Patient Disposition: Home - Self-Care Reason For Visit: ACUTE RESPIRATORY FAILURE Discharge Diagnosis: Acute respiratory failure secondary to COVID-19 virus infection, CAD status post stent, hypertension Activity: Resume your previous activity Non-emergency contact: Primary Care Provider Call non-emergency contact if: you have any medication questions and your symptoms worsen Follow-up/Referrals: Best Simpson MD [Primary Care Provider] - (Your doctor's office will call you with an appointment within 7 days) Diet: Heart Healthy Addtl Attending Provider Instructions: Please take precautions to avoid fall Please take the medications as advised-your atenolol has been discontinued and Toprol-XL 50 mg once daily has been prescribed for blood control of pressure and heart rate You will need to be home quarantine time and for the next 8 days as per CDC guidelines below; Please finish the course of steroid Try [id number] cough suppressants Pending Studies at Discharge: No Stand-Alone Forms: [facility], Smoking Cessation Medications and DC Order Prescriptions: New hydrocodone-homatropine [Hydromet] 5-1.5 mg/5 mL Syrup 5 ml PO Q6H PRN (Reason: cough) 5 Days Qty: 120 0RF metoprolol succinate [Toprol XL] 50 mg tablet extended release 24 hr 50 mg PO DAILY Qty: 30 0RF dexamethasone 6 mg tablet 6 mg PO DAILY Qty: 7 0RF Continued aspirin 81 mg Tablet,Delayed Release (Dr/Ec) 81 mg PO PM Qty: 0 simvastatin 20 mg Tablet 20 mg PO PM Qty: 0 omeprazole 20 mg Tablet,Delayed Release (Dr/Ec) 20 mg PO DAILY Qty: 0 acetaminophen [Tylenol Extra Strength] 500 mg Tablet 500 mg PO Q6H PRN (Reason: Headache) albuterol sulfate 90 mcg/actuation HFA aerosol inhaler 2 puff INH QID PRN (Reason: shortness of breath or wheezing) Qty: 1 0RF escitalopram oxalate 10 mg tablet 10 mg PO DAILY Discontinued atenolol 50 mg tablet 50 mg PO DAILY Discharge Orders: Discharge Order (Routine); Ordered 05/01/22 Ordered By: Manabendra Darya Admission Data Admit Date/Time: 04/29/22 19:11 Attending Provider: Ailyn Lackey Admit Provider: Cindi Garcia Primary Care Provider: Best Simpson Other Providers: Cindi Garcia Other Interventions: Discharge Summary Assessment (RN) Last Done: 05/01/22 17:30
== END 2022-05-01 18:15 | disposition home or self-care (01) | DRG 177 ==
LOC: ED 16:14 → 4W 19:11 → SUATTDRO 19:11 → 4W 21:11

== ENCOUNTER 2022-05-27 12:27 | Inpatient (IN) ==
[2022-05-27] MEDS ORDERED: cefTRIAXone SODIUM 2,000 MG/70 ML BAG IV STA (12:38)
--- NOTE | 2022-05-27 12:38 | Emergency Department Note ---
Impression & Plan Bacteremia, Electrolyte abnormality ED Provider Note NAME: PATY DAMON AGE: 81 SEX: F : 1940 ARRIVES VIA: Walk-In INFORMANT: [Patient][, ] ED PROVIDER(S): [Sunil Barcenas MD] Chief Complaint: Patient called back gram-negative blood cultures HPI: Patient presents due to concern for being called back due to gram-negative blood cultures for gram-negative bacteria. The patient was seen here 2 days prior where the patient did have blood work completed and was noted to have likely UTI. The patient states that she has taken her antibiotics the last day which was yesterday and today. The patient states that prior to that she had had about 5 days of nausea vomiting and feeling weak and fatigued. The patient states that she has had some occasional occasional nausea but no vomiting. No chest pains or shortness of breath. Patient currently denies any dysuria or hematuria. Patient has not had any associated fevers or chills ROS: See HPI for pertinent positives and negatives. A total of 10 systems were reviewed and otherwise negative. Past medical history: See below Surgical history: See below Social history: See below Physical Exam: GENERAL: NAD, [wearing a mask,] non-toxic. Wearing glasses EYE EXAM: Normal conjunctiva. PERRL, no anisocoria and EOM's grossly intact w/o pain. NECK: Supple, no nuchal rigidity, no adenopathy, non-tender. No signs of meningismus. FROM of the neck with good chin to chest and neck extension. No stridor. LUNGS: Clear to auscultation. Normal chest wall mechanics. HEART: NSR, no MRG. ABDOMEN: Abdomen soft, non-tender, normo-active bowel sounds, no masses, no rebound or guarding. BACK: No CVA TTP. SKIN: No rashes and no bruising. UPPER EXTREMITIES: Upper extremities are grossly normal. LOWER EXTREMITIES: Grossly normal, no edema. NEURO EXAM: A&O x3, cranial nerves II-XII grossly intact, normal speech, moves all 4 extremities. Differential diagnoses: Sepsis, UTI, pneumonia, metabolic, electrolyte abnormalities, cardiac sources, intracerebral event, toxicologic, neurologic, as well as other pathologies. Course: Patient was seen and evaluated the bedside. Full history physical exam was performed. EKG interpreted by me Normal sinus rhythm, rate of 84 normal intervals normal axis no ST elevations. Imaging Studies: See Below Cardiac monitoring: An order was placed for continuous cardiac monitoring. The monitor shows a rate of 92 with sinus rhythm. MDM: Patient presented due to concern for recent confirmed gram-negative bacteremia. Sepsis protocols were ordered along with IV fluids and Rocephin. I did speak with the on-call hospitalist Dr. Price and the patient was admitted to the medicine service. Only 1 L IV fluid bolus ordered initially upon presentation. Additioanl IVF deferred to inpatient team. Patient has normal white count mild anemia hemoglobin of 11. Platelet count is unremarkable. The patient's kidney function is unremarkable mild hypokalemia and hyponatremia hypomagnesemia and hypocalcemia noted. Ultralight replacement deferred to the inpatient team. Mild elevation in troponin but no chest pains. Patient's Pro-Pritesh is elevated at 24 which be consistent with the patient's bacteremia. 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 Beliefs That Will Affect Care: None Current Living Situation: Spouse and Family Feels Safe at Home: Yes Safety Concerns: Feels Safe At This Time Assistive Devices: None Allergies Allergies Allergy/AdvReac Type Severity Reaction Status Date / Time Sulfa (Sulfonamide Allergy Intermediate RASH Verified 05/27/22 15:19 Antibiotics) sulfamethoxazole [Bactrim] Allergy Intermediate RASH Verified 05/27/22 15:19 trimethoprim [Bactrim] Allergy Intermediate RASH Verified 05/27/22 15:19 adhesive Allergy Mild ITCHY Verified 05/27/22 15:19 Penicillins Allergy Mild RASH Verified 05/27/22 15:19 hydroxyzine Allergy Unknown UNKNOWN Verified 05/27/22 15:19 morphine AdvReac Intermediate VOMITING Verified 05/27/22 15:19 Home Meds Home Medications Medication Instructions Recorded Confirmed aspirin 81 mg tablet,delayed 81 mg PO PM ##0 12/30/08 05/27/22 release omeprazole 20 mg tablet,delayed 20 mg PO DAILY ##0 12/30/08 05/27/22 release simvastatin 20 mg tablet 20 mg PO HS ##0 12/30/08 05/27/22 escitalopram oxalate 10 mg tablet 10 mg PO DAILY 04/29/22 05/27/22 atenolol 25 mg tablet 25 mg PO QAM 05/26/22 05/27/22 Previous Rx's Medication Instructions Recorded metoprolol succinate 50 mg 50 mg PO DAILY #30 tabs 05/01/22 tablet,extended release 24 hr (Toprol XL) cephalexin 500 mg capsule 500 mg PO TID 7 days #21 caps 05/26/22 Results & Data (ED) Vital Signs Vital Signs - 24 hr 05/27/22 12:30 05/27/22 12:47 Temperature 36.7 C Temperature Source Temporal Artery Scan Pulse Rate 93 H 95 H Pulse Rhythm Regular Respiratory Rate 18 Respiratory Effort / Characteristics Non-Labored Respiratory Depth Normal Blood Pressure 139/74 Blood Pressure Mean 95 Blood Pressure Position Sitting Pulse Oximetry 93 93 Oxygen Delivery Method Room Air Sepsis Recent Fever Within 48 Hours No Sepsis New/Unexplained Change in Mental Status No Sepsis Action Taken by Nursing No Action Required Home Medications Current Medication List: was personally reviewed by me Laboratory Data Attestation: I reviewed the patient's lab results. Result diagrams: 05/27/22 13:00 05/27/22 13:00 Lab Results 05/27/22 05/27/22 05/27/22 Range/Units 13:00 13:00 13:00 WBC 9.07 (4.8-10.8) K/ul RBC 3.49 L (3.93-5.22) M/uL Hgb 11.0 L (12.0-16.0) g/dl Hct 32.9 L (34.1-44.9) % MCV 94.3 (80.0-100.0) fL MCH 31.5 (25.0-34.0) pg MCHC 33.4 (32.0-36.0) g/dL RDW Std Deviation 46.4 H (36.4-46.3) fL RDW Coeff of Remigio 13.4 (11.5-14.5) % Plt Count 202 (130-400) K/uL MPV 10.0 (9.4-12.3) fL Immature Gran % (Auto) 0.4 % Neut % (Auto) 81.3 % Lymph % (Auto) 9.8 % [place] % (Auto) 8.2 % Eos % (Auto) 0.1 % Baso % (Auto) 0.2 % Neut # (Auto) 7.37 H (1.4-6.5) K/uL Lymph # (Auto) 0.89 L (1.2-3.4) K/uL [place] # (Auto) 0.74 (0.24-0.82) K/uL Eos # (Auto) 0.01 (0-0.50) K/uL Baso # (Auto) 0.02 (0-0.2) K/uL Immature Gran # (Auto) 0.04 H (0.00-0.02) K/uL Sodium 132 L (136-145) mmol/L Potassium 3.4 L (3.5-5.1) mmol/L Chloride 99 (98-107) mmol/L Carbon Dioxide 24 (21-32) mmol/L Anion Gap 9 (3-11) BUN 14 (6-23) mg/dl Creatinine 0.96 (0.6-1.2) mg/dl Est Cr Clr Drug Dosing 45.7 ml/min Est GFR ( Amer) 63.4 ml/min Est GFR (Non-Af Amer) 54.7 ml/min BUN/Creatinine Ratio 14.6 (10-20) Glucose 114 H (70-99(Fasting)) mg/dl Lactate 1.0 (0.4-2.0) mmol/L Calcium 8.2 L (8.5-10.1) mg/dl Magnesium 1.4 L (1.7-2.4) mg/dl Total Bilirubin 0.5 D (0.2-1.0) mg/dl Direct Bilirubin 0.1 (0-0.2) mg/dl AST 13 (13-39) U/L ALT 7 (7-52) U/L Alkaline Phosphatase 47 (34-104) U/L Troponin I High Sens 15.2 H (0-14) pg/ml Total Protein 5.9 L (6.0-8.3) gm/dl Albumin 3.2 L (3.4-5.0) gm/dl Procalcitonin (0-0.5) ng/ml SARS-CoV-2, RNA, NAAT (NEGATIVE) 05/27/22 05/27/22 Range/Units 13:00 13:00 WBC (4.8-10.8) K/ul RBC (3.93-5.22) M/uL Hgb (12.0-16.0) g/dl Hct (34.1-44.9) % MCV (80.0-100.0) fL MCH (25.0-34.0) pg MCHC (32.0-36.0) g/dL RDW Std Deviation (36.4-46.3) fL RDW Coeff of Remigio (11.5-14.5) % Plt Count (130-400) K/uL MPV (9.4-12.3) fL Immature Gran % (Auto) % Neut % (Auto) % Lymph % (Auto) % [place] % (Auto) % Eos % (Auto) % Baso % (Auto) % Neut # (Auto) (1.4-6.5) K/uL Lymph # (Auto) (1.2-3.4) K/uL [place] # (Auto) (0.24-0.82) K/uL Eos # (Auto) (0-0.50) K/uL Baso # (Auto) (0-0.2) K/uL Immature Gran # (Auto) (0.00-0.02) K/uL Sodium (136-145) mmol/L Potassium (3.5-5.1) mmol/L Chloride (98-107) mmol/L Carbon Dioxide (21-32) mmol/L Anion Gap (3-11) BUN (6-23) mg/dl Creatinine (0.6-1.2) mg/dl Est Cr Clr Drug Dosing ml/min Est GFR ( Amer) ml/min Est GFR (Non-Af Amer) ml/min BUN/Creatinine Ratio (10-20) Glucose (70-99(Fasting)) mg/dl Lactate (0.4-2.0) mmol/L Calcium (8.5-10.1) mg/dl Magnesium (1.7-2.4) mg/dl Total Bilirubin (0.2-1.0) mg/dl Direct Bilirubin (0-0.2) mg/dl AST (13-39) U/L ALT (7-52) U/L Alkaline Phosphatase (34-104) U/L Troponin I High Sens (0-14) pg/ml Total Protein (6.0-8.3) gm/dl Albumin (3.4-5.0) gm/dl Procalcitonin 24.51 H (0-0.5) ng/ml SARS-CoV-2, RNA, NAAT NEGATIVE (NEGATIVE) Administered Medications Enoxaparin Sodium (Enoxaparin Inj 40 Mg/0.4 Ml Syr) 40 mg SQ Q24H LUPE Stop: 06/26/22 13:29 Last Admin: 05/27/22 14:29 Dose: 40 mg Documented By: NAY Magnesium Sulfate/Dextrose (Magnesium Sulfate / D5w) 1 gm in 100 mls @ 50 mls/hr IV Q2H LUPE Stop: 05/27/22 19:14 Last Admin: 05/27/22 16:47 Dose: 50 mls/hr Documented By: Infusion: 05/27/22 16:47 Dose: 50 mls/hr Documented By: Admin: 05/27/22 15:13 Dose: 50 mls/hr Documented By: NAY Potassium Chloride (Potassium Chloride Crtab 20 Meq Tabcr) 40 meq PO ONE ONE Stop: 05/27/22 17:01 Last Admin: 05/27/22 16:46 Dose: 40 meq Documented By: ZOYA Discontinued Medications Sodium Chloride (Nss 1000ml) 500 mls @ 999 mls/hr IV .Q31M LUPE Stop: 05/27/22 13:15 Last Infusion: 05/27/22 14:16 Dose: 0 mls/hr Documented By: Admin: 05/27/22 13:06 Dose: 999 mls/hr Documented By: NAY Ceftriaxone Sodium (Rocephin) 2,000 mg in 70 mls @ 140 mls/hr IV NOW STA Stop: 05/27/22 13:07 Last Infusion: 05/27/22 14:16 Dose: 0 mls/hr Documented By: Admin: 05/27/22 13:25 Dose: 140 mls/hr Documented By: NAY Potassium Chloride (Potassium Chloride Crtab 20 Meq Tabcr) 40 meq PO NOW STA Stop: 05/27/22 15:00 Last Admin: 05/27/22 15:18 Dose: 40 meq Documented By: NAY Imaging Data Radiologist's Impression: Chest X-Ray 05/27/22 12:38 XR chest 1V portable CLINICAL HISTORY: Sepsis COMPARISON STUDY: Chest radiograph May 25, 2022. FINDINGS: Lung volumes are normal. Lungs are clear. There is no pneumothorax or pleural effusion. Cardiac size is normal. Mediastinal contours are normal. There is no evidence for pulmonary edema. Biapical scarring is incidentally noted. IMPRESSION: No acute cardiopulmonary findings. ACT 112: Negative or not required by law. Electronically signed by: Ed Singh M.D. 05/27/2022 12:57 PM Discharge Plan Visit Data Chief Complaint: Referred by Doctor Stated Complaint: REFERRED BY DOCTOR ED Provider: Sunil Barcenas Discharge Problem: Bacteremia, Electrolyte abnormality Patient Disposition: Admitted As Inpatient Discharge Instructions Interventions: ED Discharge Assessment Last Done: 05/27/22 15:27
[2022-05-27] MEDS ORDERED: SODIUM CHLORIDE 0.9% 1000ML 500 ML IV SCH (12:45)
--- NOTE | 2022-05-27 13:00 | XRay Report ---
XR chest 1V portable CLINICAL HISTORY: Sepsis COMPARISON STUDY: Chest radiograph May 25, 2022. FINDINGS: Lung volumes are normal. Lungs are clear. There is no pneumothorax or pleural effusion. Car diac size is normal. Mediastinal contours are normal. There is no evidence for pulmonary edema. Biapi varun scarring is incidentally noted. IMPRESSION: No acute cardiopulmonary findings. ACT 112: Negative or not required by law. Electronically signed by: Ed Singh M.D. 05/27/2022 12:57 PM
[2022-05-27 13:12] LABS: Basophils # (auto) 0.02 K/uL (0-0.2); Basophils % (auto) 0.2 %; Eosinophils # (auto) 0.01 K/uL (0-0.50); Eosinophils % (auto) 0.1 %; Hematocrit (blood only) 32.9 % (34.1-44.9); Immature Granulocytes # (auto) 0.04 K/uL (0.00-0.02); Immature Granulocytes % (auto) 0.4 %; Lymphocytes # (auto) 0.89 K/uL (1.2-3.4); Lymphocytes % (auto) 9.8 %; Mean Corpuscular Hemoglobin 31.5 pg (25.0-34.0); Mean Corpuscular Hgb Conc 33.4 g/dL (32.0-36.0); Mean Corpuscular Volume 94.3 fL (80.0-100.0); Monocytes # (auto) 0.74 K/uL (0.24-0.82); Monocytes % (auto) 8.2 %; Neutrophils # (auto) 7.37 K/uL (1.4-6.5); Neutrophils % (auto) 81.3 %; Platelet Count 202 K/uL (130-400); RDW Coefficient of Variation 13.4 % (11.5-14.5); RDW Standard Deviation 46.4 fL (36.4-46.3); Red Blood Count 3.49 M/uL (3.93-5.22); White Blood Count 9.07 K/ul (4.8-10.8)
[2022-05-27] MEDS ORDERED: ACETAMINOPHEN 325 MG TAB PO PRN (13:21)
[2022-05-27] MEDS ORDERED: POLYETHYLENE (MIRALAX) 17 GM PACK PO PRN (13:21)
[2022-05-27] MEDS ORDERED: ONDANSETRON INJ 2 MG/ML 2 ML VIAL IV PRN (13:21)
[2022-05-27 13:42] LABS: Albumin Level 3.2 gm/dl (3.4-5.0); BUN Creatinine Ratio 14.6 (10-20); Bilirubin Direct 0.1 mg/dl (0-0.2); Bilirubin,Total 0.5 mg/dl (0.2-1.0); Calcium 8.2 mg/dl (8.5-10.1); Creatinine Clr Calc Pharmacy 45.7 ml/min; Est GFR (African American) 63.4 ml/min; Est GFR (Non-African American) 54.7 ml/min; Magnesium 1.4 mg/dl (1.7-2.4); Potassium 3.4 mmol/L (3.5-5.1); Total Protein 5.9 gm/dl (6.0-8.3); Troponin I High Sensitivity 15.2 pg/ml (0-14)
--- NOTE | 2022-05-27 14:14 | History & Physical Report ---
Date of Service May 27, 2022 Assessment & Plan (1) Bacteremia: Plan: - positive blood cultures for GNR from 05/26/2022 - repeated in ED on presentation 05/27/2022 - likely source is UTI as patient having symptoms and positive UA for infection - no leukocytosis but PCT elevated to 24 - started on ceftriaxone - continue for at least 4-5 days then can transition to PO for discharge - follow up cultures - IVF in ED - hemodynamically stable at this time - continue to monitor for improvement (2) Acute UTI (urinary tract infection): Plan: - likely source of infection and bacteremia - GNR in urine culture - follow up susceptibilities - ceftriaxone for now (3) CAD (coronary artery disease): Plan: - no chest pain or SOB reported - continue home medications (4) HTN (hypertension): Plan: - continue home meds (5) HLD (hyperlipidemia): Plan: - continue statin (6) GERD (gastroesophageal reflux disease): Plan: - continue PPI Plan DVT ppx: lovenox Code Status: Full Code Dispo: med/surg Darrius Ortega MD [facility] Medicine History of Present Illness Chief Complaint: GNR bacteremia Primary Care Provider: Best Simpson MD The patient is an 81 year old woman with pmh CAD s/p PCI/stent, anxiety, GERD, HLD who presented as call back to ED after positive blood culture from 05/26/2022 with GNR. She initially presented at that time with generalized weakness and n/v as well as urinary frequency. Positive UA and was treated for UTI and discharged from the ED. Called back due to positive blood culture. Patient reports feeling a little better since starting antibiotics but still with frequency, nausea, weakness. Reports no vomiting since then, denies fever or chills, abdominal pain, suprapubic discomfort. Does complain of some left sided flank pain. Denies decreased appetite over this time. In the ED, vitals were stable. Labs were significant for Na 132, K 3.4, Mg 1.4, procalcitonin 24. CXR unremarkable. Blood cultures were redrawn in the ED. She was given 1L NS, started on ceftriaxone and admitted to medicine. Allergies Allergy/AdvReac Type Severity Reaction Status Date / Time Penicillins Allergy Unknown RASH Verified 05/26/22 00:45 adhesive Allergy ITCHY Verified 05/26/22 00:45 Bactrim Allergy RASH Verified 01/06/13 08:59 hydroxyzine Allergy UNKNOWN Verified 05/26/22 00:45 Sulfa (Sulfonamide Allergy RASH Verified 05/26/22 00:45 Antibiotics) sulfamethoxazole [Bactrim] Allergy RASH Verified 05/26/22 00:45 trimethoprim [Bactrim] Allergy RASH Verified 05/26/22 00:45 morphine AdvReac Mild VOMITING Verified 05/26/22 00:45 Home Medications Medication Instructions Recorded Confirmed Type aspirin 81 mg tablet,delayed 81 mg PO PM ##0 12/30/08 05/26/22 History release omeprazole 20 mg tablet,delayed 20 mg PO DAILY ##0 12/30/08 05/26/22 History release simvastatin 20 mg tablet 20 mg PO HS ##0 12/30/08 05/26/22 History escitalopram oxalate 10 mg tablet 10 mg PO DAILY 04/29/22 05/26/22 History dexamethasone 6 mg tablet 6 mg PO DAILY #7 tabs 05/01/22 05/26/22 Rx metoprolol succinate 50 mg 50 mg PO DAILY #30 tabs 05/01/22 05/26/22 Rx tablet,extended release 24 hr (Toprol XL) atenolol 25 mg tablet 25 mg PO QAM 05/26/22 05/26/22 History cephalexin 500 mg capsule 500 mg PO TID 7 days #21 caps 05/26/22 Rx Past Med/Surg History Medical History CAD (coronary artery disease) GERD (gastroesophageal reflux disease) HLD (hyperlipidemia) HTN (hypertension) Surgical History H/O heart artery stent Family History Other Hypertension Social History Smoking Status: Never smoker Tobacco Type: Cigarettes Hx Alcohol Use: Yes Alcohol type: beer Hx Substance Use: No Preferred Language: Burundian Communication Ability: Effective 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 Beliefs That Will Affect Care: None Current Living Situation: Spouse Feels Safe at Home: Yes Assistive Devices: None Review of Systems Review of Systems: All systems reviewed & are unremarkable except as noted in Subjective Physical Exam Physical Exam: Constitutional:L well developed, we ll nourished, + ob jovani, NAD Eyes: PERRL, conjunctiva e normal, anicteri c sclerae ENMT: external ear and n ose normal, oropha rynx normal Neck: trachea midline, n o thyromegaly Respiratory: no respiratory dis tress Auscultatio n: CTAB; no crackl es and no wheezes Cardiovascular:L Rate/Rhythm: regul ar rate and regula r rhythm; not tach ycardic Heart Makenzie nds: normal S1 and normal S2; no mur mur Extremities: no edema Gastrointestinal ( Abdomen): Inspection/Auscult ation: normal rogers l sounds; abdomen not distended Per cussion/Palpation: abdomen soft; abd omen nontender Musculoskeletal: No acute arthritis in any joint Neurologic: normal touch/pain/ proprioception and moves all extremi ties; no focal mot or deficits Psychiatric: A+Ox3, euthymic af fect Lymphatic: no cervical or axi llary lymphadenopa thy Results & Data Results & Data ([facility]) Vital Signs (Past 12 Hours) Vital Signs Temp Pulse Resp BP Pulse Ox O2 Del Method 05/27/22 12:47 95 H 93 05/27/22 12:30 36.7 C 93 H 18 139/74 93 Room Air Diagnostic Findings Laboratory Results WBC 9.07 K/ul (4.8-10.8) 05/27/22 13:00 RBC 3.49 M/uL (3.93-5.22) L 05/27/22 13:00 Hgb 11.0 g/dl (12.0-16.0) L 05/27/22 13:00 Hct 32.9 % (34.1-44.9) L 05/27/22 13:00 MCV 94.3 fL (80.0-100.0) 05/27/22 13:00 MCH 31.5 pg (25.0-34.0) 05/27/22 13:00 MCHC 33.4 g/dL (32.0-36.0) 05/27/22 13:00 RDW Std Deviation 46.4 fL (36.4-46.3) H 05/27/22 13:00 RDW Coeff of Remigio 13.4 % (11.5-14.5) 05/27/22 13:00 Plt Count 202 K/uL (130-400) 05/27/22 13:00 MPV 10.0 fL (9.4-12.3) 05/27/22 13:00 Immature Gran % (Auto) 0.4 % 05/27/22 13:00 Neut % (Auto) 81.3 % 05/27/22 13:00 Lymph % (Auto) 9.8 % 05/27/22 13:00 [place] % (Auto) 8.2 % 05/27/22 13:00 Eos % (Auto) 0.1 % 05/27/22 13:00 Baso % (Auto) 0.2 % 05/27/22 13:00 Neut # (Auto) 7.37 K/uL (1.4-6.5) H 05/27/22 13:00 Lymph # (Auto) 0.89 K/uL (1.2-3.4) L 05/27/22 13:00 [place] # (Auto) 0.74 K/uL (0.24-0.82) 05/27/22 13:00 Eos # (Auto) 0.01 K/uL (0-0.50) 05/27/22 13:00 Baso # (Auto) 0.02 K/uL (0-0.2) 05/27/22 13:00 Immature Gran # (Auto) 0.04 K/uL (0.00-0.02) H 05/27/22 13:00 Sodium 132 mmol/L (136-145) L 05/27/22 13:00 Potassium 3.4 mmol/L (3.5-5.1) L 05/27/22 13:00 Chloride 99 mmol/L (98-107) 05/27/22 13:00 Carbon Dioxide 24 mmol/L (21-32) 05/27/22 13:00 Anion Gap 9 (3-11) 05/27/22 13:00 BUN 14 mg/dl (6-23) 05/27/22 13:00 Creatinine 0.96 mg/dl (0.6-1.2) 05/27/22 13:00 Est Cr Clr Drug Dosing 45.7 ml/min 05/27/22 13:00 Est GFR ( Amer) 63.4 ml/min 05/27/22 13:00 Est GFR (Non-Af Amer) 54.7 ml/min 05/27/22 13:00 BUN/Creatinine Ratio 14.6 (10-20) 05/27/22 13:00 Glucose 114 mg/dl (70-99(Fasting)) H 05/27/22 13:00 Lactate 1.0 mmol/L (0.4-2.0) 05/27/22 13:00 Calcium 8.2 mg/dl (8.5-10.1) L 05/27/22 13:00 Magnesium 1.4 mg/dl (1.7-2.4) L 05/27/22 13:00 Total Bilirubin 0.5 mg/dl (0.2-1.0) D 05/27/22 13:00 Direct Bilirubin 0.1 mg/dl (0-0.2) 05/27/22 13:00 AST 13 U/L (13-39) 05/27/22 13:00 ALT 7 U/L (7-52) 05/27/22 13:00 Alkaline Phosphatase 47 U/L (34-104) 05/27/22 13:00 Troponin I High Sens 15.2 pg/ml (0-14) H 05/27/22 13:00 Total Protein 5.9 gm/dl (6.0-8.3) L 05/27/22 13:00 Albumin 3.2 gm/dl (3.4-5.0) L 05/27/22 13:00 Procalcitonin 24.51 ng/ml (0-0.5) H 05/27/22 13:00 SARS-CoV-2, RNA, NAAT NEGATIVE (NEGATIVE) 05/27/22 13:00 Impressions Chest X-Ray 05/27/22 12:38 XR chest 1V portable CLINICAL HISTORY: Sepsis COMPARISON STUDY: Chest radiograph May 25, 2022. FINDINGS: Lung volumes are normal. Lungs are clear. There is no pneumothorax or pleural effusion. Cardiac size is normal. Mediastinal contours are normal. There is no evidence for pulmonary edema. Biapical scarring is incidentally noted. IMPRESSION: No acute cardiopulmonary findings. ACT 112: Negative or not required by law. Electronically signed by: Ed Singh M.D. 05/27/2022 12:57 PM Medications Administered Current Inpatient Medications Acetaminophen (Acetaminophen 325 Mg Tab) 650 mg PO Q4H PRN PRN Reason: Pain or Fever Stop: 06/26/22 13:20 Enoxaparin Sodium (Enoxaparin Inj 40 Mg/0.4 Ml Syr) 40 mg SQ Q24H LUPE Stop: 06/26/22 13:29 Ondansetron HCl (Ondansetron Inj 2 Mg/Ml 2 Ml Vial) 4 mg IV Q6H PRN PRN Reason: Nausea Stop: 06/26/22 13:20 Polyethylene Glycol (Polyethylene (Miralax) 17 Gm Pack) 17 gm PO DAILY PRN PRN Reason: Constipation Stop: 06/26/22 13:20 Code Status & VTE Plan Code Status Full Code VTE Prophylaxis Plan VTE Prophylaxis will be ordered: Yes
[2022-05-27] MEDS: ENOXAPARIN INJ 40 MG/0.4 ML SYR SQ SCH (14:29)
[2022-05-27] MEDS ORDERED: POTASSIUM CHLORIDE CRTAB 20 MEQ TABCR PO STA (14:59)
[2022-05-27] MEDS: MAGNESIUM SULFATE / D5W 1 GM/100 ML BAG IV SCH ×2 (15:13→16:47)
[2022-05-27] MEDS ORDERED: LACTATED RINGER'S 1,000 ML IV ONE (16:27)
[2022-05-27] MEDS ORDERED: POTASSIUM CHLORIDE CRTAB 20 MEQ TABCR PO ONE (17:00)
[2022-05-27 18:09] LABS: Appearance Urine Clear (Clear); Bacteria Urine Automated Negative (Negative); Bilirubin Urine Negative (Negative); Blood Urine 1+ (Negative); Color Urine Yellow; Epithelial Cell Urine Auto >30 /lpf (0-5); Glucose Urine UA Negative (Negative); Ketones Urine Negative (Negative); Leukocyte Esterase Urine Trace (Negative); Nitrite Urine Negative (Negative); Protein Urine 1+ (Negative); Specific Gravity Urine 1.013 (1.000-1.030); Urobilinogen Urine Negative (Negative); pH Urine 5.5 (4.5-7.5)
[2022-05-27] MEDS: ASPIRIN 81 MG ECTAB PO SCH (21:06)
[2022-05-27] MEDS: SIMVASTATIN 20 MG TAB PO SCH (21:07)
[2022-05-27] MEDS: MAGNESIUM OXIDE 400 MG TAB PO SCH (21:08)
[2022-05-28] MEDS: MAGNESIUM OXIDE 400 MG TAB PO SCH ×3 (07:37→20:18)
[2022-05-28] MEDS: ESCITALOPRAM OXALATE 10 MG TAB PO SCH (07:37)
[2022-05-28] MEDS: PANTOprazole 40 MG TAB PO SCH (07:37)
[2022-05-28] MEDS: ATENOLOL 25 MG TABLET PO SCH (07:37)
[2022-05-28 07:41] LABS: Basophils # (auto) 0.02 K/uL (0-0.2); Basophils % (auto) 0.3 %; Eosinophils # (auto) 0.07 K/uL (0-0.50); Hematocrit (blood only) 27.7 % (34.1-44.9); Hemoglobin 9.2 g/dl (12.0-16.0); Immature Granulocytes # (auto) 0.06 K/uL (0.00-0.02); Immature Granulocytes % (auto) 0.9 %; Lymphocytes % (auto) 18.8 %; Mean Corpuscular Hemoglobin 30.9 pg (25.0-34.0); Mean Corpuscular Hgb Conc 33.2 g/dL (32.0-36.0); Mean Platelet Volume 10.2 fL (9.4-12.3); Monocytes # (auto) 0.78 K/uL (0.24-0.82); Monocytes % (auto) 11.3 %; Neutrophils % (auto) 67.7 %; Platelet Count 204 K/uL (130-400); RDW Coefficient of Variation 13.2 % (11.5-14.5); RDW Standard Deviation 45.1 fL (36.4-46.3); Red Blood Count 2.98 M/uL (3.93-5.22); White Blood Count 6.93 K/ul (4.8-10.8)
[2022-05-28 08:13] LABS: Albumin Globulin Ratio 1.3 (0.9-2); Albumin Level 2.8 gm/dl (3.4-5.0); BUN Creatinine Ratio 13.3 (10-20); Bilirubin,Total 0.3 mg/dl (0.2-1.0); Calcium 7.6 mg/dl (8.5-10.1); Creatinine Clr Calc Pharmacy 52.8 ml/min; Est GFR (African American) 75.6 ml/min; Est GFR (Non-African American) 65.2 ml/min; Globulin 2.1 gm/dl (2.5-4.0); Magnesium 1.7 mg/dl (1.7-2.4); Phosphorus 2.2 mg/dl (2.5-4.9); Potassium 3.9 mmol/L (3.5-5.1); Total Protein 4.9 gm/dl (6.0-8.3)
[2022-05-28] MEDS ORDERED: SODIUM PHOSPHATE 3 MMOL/1 ML INFUSION IV ONE (08:28)
[2022-05-28] MEDS ORDERED: SODIUM PHOSPHATE 12 MMOL in SODIUM CHLORIDE 0.9% 250 ML IV ONE (08:45)
[2022-05-28] MEDS: cefTRIAXone SODIUM 2,000 MG in DEXTROSE 5% 50 ML IV SCH (10:00)
--- NOTE | 2022-05-28 13:27 | Hospitalist Progress Note ---
Date of Service May 28, 2022 Assessment & Plan (1) Bacteremia: Plan: E. coli bacteremia Secondary to UTI Blood Culture: E. coli X2 Repeat blood cultures pending Continue IV Rocephin Transition to p.o. antibiotics as able (2) Acute UTI (urinary tract infection): Plan: - likely source of infection and bacteremia -Urine culture growing E. coli Repeat urine culture negative to date Continue antibiotics as above (3) CAD (coronary artery disease): Plan: - continue home medications (4) HTN (hypertension): Plan: - continue home meds (5) HLD (hyperlipidemia): Plan: - continue statin (6) GERD (gastroesophageal reflux disease): Plan: - continue PPI Plan DVT Px: Lovenox SQ Code Status: Full Code Admission and Anticipated Discharge Date Admission Date: May 27, 2022 Subjective Patient is seen and examined at bedside Offers no complaints Denies any chest pain, shortness of breath, dizziness, nausea, abdominal pain, dysuria Blood culture growing E. coli Review of Systems Review of Systems: All systems reviewed & are unremarkable except as noted in Subjective Physical Exam Physical Exam: Physical Exam: Vitals signs as noted above General Appearance:Moderately built and nourished, no apparent distress Head: normocephalic, Atraumatic Eyes: normal inspection, EOMI Neck: supple, Trachea midline Respiratory/Chest: Normal breath sounds, CTA, No accessory muscle use Cardiovascular: S1, S2, No murmur Abdomen/GI:Soft, Non tender, Bowel sounds present Extremities/Musculoskeletal:normal inspection, no edema Neurologic/Psych:AAOX3, grossly no focal neurological deficits Skin: normal color, warm Results & Data Results & Data ([facility]) Vital Signs (Past 12 Hours) Vital Signs Temp Pulse Resp BP Pulse Ox O2 Del Method 05/28/22 11:58 36.7 C 78 16 126/70 94 Room Air 05/28/22 07:36 36.8 C 85 18 127/74 94 Room Air 05/28/22 07:35 36.7 C 86 16 140/70 94 Room Air Laboratory Results Short CBC 05/28/22 Range/Units 07:00 WBC 6.93 (4.8-10.8) K/ul Hgb 9.2 L (12.0-16.0) g/dl Hct 27.7 L (34.1-44.9) % Plt Count 204 (130-400) K/uL BMP 05/27/22 05/28/22 13:00 07:00 Sodium 132 L 133 L Potassium 3.4 L 3.9 Chloride 99 102 Carbon Dioxide 24 27 BUN 14 11 Creatinine 0.96 0.83 Glucose 114 H 85 Calcium 8.2 L 7.6 L Liver Function 05/27/22 05/28/22 Range/Units 13:00 07:00 Total Bilirubin 0.5 D 0.3 (0.2-1.0) mg/dl Direct Bilirubin 0.1 (0-0.2) mg/dl AST 13 11 L (13-39) U/L ALT 7 7 (7-52) U/L Alkaline Phosphatase 47 38 (34-104) U/L Albumin 3.2 L 2.8 L (3.4-5.0) gm/dl Urine 05/27/22 Range/Units 17:57 Urine Color Yellow Urine Appearance Clear (Clear) Urine pH 5.5 (4.5-7.5) Ur Specific [place] 1.013 (1.000-1.030) Urine Protein 1+ H (Negative) Urine Glucose (UA) Negative (Negative)
[2022-05-28] MEDS: ENOXAPARIN INJ 40 MG/0.4 ML SYR SQ SCH (14:49)
[2022-05-28] MEDS: ASPIRIN 81 MG ECTAB PO SCH (20:18)
[2022-05-28] MEDS: SIMVASTATIN 20 MG TAB PO SCH (20:19)
--- NOTE | 2022-05-28 23:17 | Electrocardiogram Report ---
Test Reason : Blood Pressure : / mmHG Vent. Rate : 084 BPM Atrial Rate : 084 BPM P-R Int : 170 ms QRS Dur : 076 ms QT Int : 344 ms P-R-T Axes : 077 042 055 degrees QTc Int : 406 ms Normal sinus rhythm Premature atrial complexes When compared with ECG of 25-MAY-2022 23:17, Premature ventricular complexes are no longer Present Criteria for Septal infarct are no longer Present Confirmed by Francisco Villarreal ([id number]) on 05/28/2022 11:16:49 PM Referred By: Provider Outside Confirmed By:Francisco Villarreal
[2022-05-29 06:29] LABS: BUN Creatinine Ratio 12.1 (10-20); Calcium 7.6 mg/dl (8.5-10.1); Creatinine Clr Calc Pharmacy 37.8 ml/min; Est GFR (African American) 50.4 ml/min; Est GFR (Non-African American) 43.5 ml/min; Magnesium 1.6 mg/dl (1.7-2.4); Phosphorus 2.8 mg/dl (2.5-4.9); Potassium 3.9 mmol/L (3.5-5.1)
[2022-05-29] MEDS: ESCITALOPRAM OXALATE 10 MG TAB PO SCH (08:09)
[2022-05-29] MEDS: ATENOLOL 25 MG TABLET PO SCH (08:09)
[2022-05-29] MEDS: PANTOprazole 40 MG TAB PO SCH (08:09)
[2022-05-29] MEDS: MAGNESIUM OXIDE 400 MG TAB PO SCH ×2 (08:10→15:22)
[2022-05-29] MEDS: cefTRIAXone SODIUM 2,000 MG in DEXTROSE 5% 50 ML IV SCH (08:11)
[2022-05-29] MEDS ORDERED: MAGNESIUM SULFATE / D5W 1 GM/100 ML BAG IV ONE (08:31)
--- NOTE | 2022-05-29 13:53 | Hospitalist Progress Note ---
Date of Service May 29, 2022 Assessment & Plan (1) Bacteremia: Plan: E. coli bacteremia Secondary to UTI Blood Culture: E. coli X2 Repeat blood cultures No growth to date Continue IV Rocephin Transition to p.o. antibiotics upon discharge Appreciate ID input PT/OT katherine (2) Acute UTI (urinary tract infection): Plan: - likely source of infection and bacteremia -Urine culture growing E. coli Repeat urine culture negative to date Continue antibiotics as above Hypomagnesemia Replete electrolytes as needed Monitor (3) CAD (coronary artery disease): Plan: - continue home medications (4) HTN (hypertension): Plan: - continue home meds (5) HLD (hyperlipidemia): Plan: - continue statin (6) GERD (gastroesophageal reflux disease): Plan: - continue PPI Plan DVT Px: Lovenox SQ Code Status: Full Code Admission and Anticipated Discharge Date Admission Date: May 27, 2022 Subjective Patient is seen and examined at bedside Feels well today No new complaints Denies any chest pain, shortness of breath, dizziness, nausea, abdominal pain, dysuria Review of Systems Review of Systems: All systems reviewed & are unremarkable except as noted in Subjective Physical Exam Physical Exam: Physical Exam: Vitals signs as noted above General Appearance:Moderately built and nourished, no apparent distress Head: normocephalic, Atraumatic Eyes: normal inspection, EOMI Neck: supple, Trachea midline Respiratory/Chest: Normal breath sounds, CTA, No accessory muscle use Cardiovascular: S1, S2, No murmur Abdomen/GI:Soft, Non tender, Bowel sounds present Extremities/Musculoskeletal:normal inspection, no edema Neurologic/Psych:AAOX3, grossly no focal neurological deficits Skin: normal color, warm Results & Data Results & Data ([facility]) Vital Signs (Past 12 Hours) Vital Signs Temp Pulse Resp BP Pulse Ox O2 Del Method 05/29/22 11:33 36.4 C L 80 18 120/60 96 Room Air 05/29/22 07:51 36.6 C 80 19 142/60 H 95 Room Air Laboratory Results [facility] 05/29/22 05:42 Sodium 135 L Potassium 3.9 Chloride 101 Carbon Dioxide 29 BUN 14 Creatinine 1.16 D Glucose 86 Calcium 7.6 L
[2022-05-29] MEDS: ENOXAPARIN INJ 40 MG/0.4 ML SYR SQ SCH (15:22)
[2022-05-29] MEDS: SIMVASTATIN 20 MG TAB PO SCH (19:54)
[2022-05-29] MEDS: ASPIRIN 81 MG ECTAB PO SCH (19:54)
[2022-05-30] MEDS: ATENOLOL 25 MG TABLET PO SCH (07:31)
[2022-05-30] MEDS: PANTOprazole 40 MG TAB PO SCH (07:31)
[2022-05-30] MEDS: ESCITALOPRAM OXALATE 10 MG TAB PO SCH (07:31)
[2022-05-30] MEDS: cefTRIAXone SODIUM 2,000 MG in DEXTROSE 5% 50 ML IV SCH (07:33)
[2022-05-30 09:07] LABS: Hematocrit (blood only) 31.5 % (34.1-44.9); Hemoglobin 10.6 g/dl (12.0-16.0); Mean Corpuscular Hemoglobin 31.3 pg (25.0-34.0); Mean Corpuscular Hgb Conc 33.7 g/dL (32.0-36.0); Mean Corpuscular Volume 92.9 fL (80.0-100.0); Mean Platelet Volume 10.3 fL (9.4-12.3); Platelet Count 284 K/uL (130-400); RDW Coefficient of Variation 13.2 % (11.5-14.5); Red Blood Count 3.39 M/uL (3.93-5.22)
[2022-05-30 09:14] LABS: BUN Creatinine Ratio 14.9 (10-20); Creatinine Clr Calc Pharmacy 50.4 ml/min; Est GFR (African American) 71.4 ml/min; Est GFR (Non-African American) 61.6 ml/min; Phosphorus 3.1 mg/dl (2.5-4.9); Potassium 3.7 mmol/L (3.5-5.1)
--- NOTE | 2022-05-30 13:12 | Hospitalist Progress Note ---
Date of Service May 30, 2022 Assessment & Plan (1) Bacteremia: Plan: E. coli bacteremia Secondary to UTI Blood Culture: E. coli X2 Repeat blood cultures No growth to date Continue IV Rocephin Appreciate ID input PT/OT eval completed Plan to discharge on cephalexin 500 mg 3 times daily until 06/03/2022 (2) Acute UTI (urinary tract infection): Plan: - likely source of infection and bacteremia -Urine culture growing E. coli Repeat urine culture negative to date Continue antibiotics as above Hypomagnesemia Replete electrolytes as needed Monitor (3) CAD (coronary artery disease): Plan: - continue home medications (4) HTN (hypertension): Plan: - continue home meds (5) HLD (hyperlipidemia): Plan: - continue statin (6) GERD (gastroesophageal reflux disease): Plan: - continue PPI Plan DVT Px: Lovenox SQ Code Status: Full Code Admission and Anticipated Discharge Date Admission Date: May 27, 2022 Subjective Patient is seen and examined at bedside Offers no complaints Denies any chest pain, shortness of breath, dizziness, nausea, abdominal pain, dysuria Plan to discharge home today Review of Systems Review of Systems: All systems reviewed & are unremarkable except as noted in Subjective Physical Exam Physical Exam: Physical Exam: Vitals signs as noted above General Appearance:Moderately built and nourished, no apparent distress Head: normocephalic, Atraumatic Eyes: normal inspection, EOMI Neck: supple, Trachea midline Respiratory/Chest: Normal breath sounds, CTA, No accessory muscle use Cardiovascular: S1, S2, No murmur Abdomen/GI:Soft, Non tender, Bowel sounds present Extremities/Musculoskeletal:normal inspection, no edema Neurologic/Psych:AAOX3, grossly no focal neurological deficits Skin: normal color, warm Results & Data Results & Data ([facility]) Vital Signs (Past 12 Hours) Vital Signs Temp Pulse Resp BP Pulse Ox O2 Del Method 05/30/22 10:00 Room Air 05/30/22 07:14 36.7 C 86 16 152/79 H 93 Room Air Laboratory Results Short CBC 05/30/22 Range/Units 08:31 WBC 8.60 (4.8-10.8) K/ul Hgb 10.6 L (12.0-16.0) g/dl Hct 31.5 L (34.1-44.9) % Plt Count 284 (130-400) K/uL [facility] 05/30/22 08:31 Sodium 136 Potassium 3.7 Chloride 99 Carbon Dioxide 33 H BUN 13 Creatinine 0.87 Glucose 89 Calcium 8.0 L
--- NOTE | 2022-05-30 13:31 | Discharge Summary ---
Date of Service May 30, 2022 Admission HPI Per Admitting Provider The patient is an 81 year old woman with pmh CAD s/p PCI/stent, anxiety, GERD, HLD who presented as call back to ED after positive blood culture from 05/26/2022 with GNR. She initially presented at that time with generalized weakness and n/v as well as urinary frequency. Positive UA and was treated for UTI and discharged from the ED. Called back due to positive blood culture. Patient reports feeling a little better since starting antibiotics but still with frequency, nausea, weakness. Reports no vomiting since then, denies fever or chills, abdominal pain, suprapubic discomfort. Does complain of some left sided flank pain. Denies decreased appetite over this time. In the ED, vitals were stable. Labs were significant for Na 132, K 3.4, Mg 1.4, procalcitonin 24. CXR unremarkable. Blood cultures were redrawn in the ED. She was given 1L NS, started on ceftriaxone and admitted to medicine. Admission Exam Per Admitting Provider Physical Exam Physical Exam: Constitutional:L well developed, we ll nourished, + ob jovani, NAD Eyes: PERRL, conjunctiva e normal, anicteri c sclerae ENMT: external ear and n ose normal, oropha rynx normal Neck: trachea midline, n o thyromegaly Respiratory: no respiratory dis tress Auscultatio n: CTAB; no crackl es and no wheezes Cardiovascular:L Rate/Rhythm: regul ar rate and regula r rhythm; not tach ycardic Heart Makenzie nds: normal S1 and normal S2; no mur mur Extremities: no edema Gastrointestinal ( Abdomen): Inspection/Auscult ation: normal rogers l sounds; abdomen not distended Per cussion/Palpation: abdomen soft; abd omen nontender Musculoskeletal: No acute arthritis in any joint Neurologic: normal touch/pain/ proprioception and moves all extremi ties; no focal mot or deficits Psychiatric: A+Ox3, euthymic af fect Lymphatic: no cervical or axi llary lymphadenopa thy Principal Diagnosis Escherichia coli bacteremia Urinary tract infection Hypomagnesemia Discharge Data Allergies Allergy/AdvReac Type Severity Reaction Status Date / Time Sulfa (Sulfonamide Allergy Intermediate RASH Verified 05/27/22 15:19 Antibiotics) sulfamethoxazole [Bactrim] Allergy Intermediate RASH Verified 05/27/22 15:19 trimethoprim [Bactrim] Allergy Intermediate RASH Verified 05/27/22 15:19 adhesive Allergy Mild ITCHY Verified 05/27/22 15:19 Penicillins Allergy Mild RASH Verified 05/27/22 15:19 hydroxyzine Allergy Unknown UNKNOWN Verified 05/27/22 15:19 morphine AdvReac Intermediate VOMITING Verified 05/27/22 15:19 Consultations 05/27/22 13:21 ED Decision to Admit Stat 05/29/22 10:53 Consult Infectious Diseases Routine Procedures Performed Laboratory Results WBC 8.60 K/ul (4.8-10.8) 05/30/22 08:31 RBC 3.39 M/uL (3.93-5.22) L 05/30/22 08:31 Hgb 10.6 g/dl (12.0-16.0) L 05/30/22 08:31 Hct 31.5 % (34.1-44.9) L 05/30/22 08:31 MCV 92.9 fL (80.0-100.0) 05/30/22 08:31 MCH 31.3 pg (25.0-34.0) 05/30/22 08:31 MCHC 33.7 g/dL (32.0-36.0) 05/30/22 08:31 RDW Std Deviation 45.0 fL (36.4-46.3) 05/30/22 08:31 RDW Coeff of Remigio 13.2 % (11.5-14.5) 05/30/22 08:31 Plt Count 284 K/uL (130-400) 05/30/22 08:31 MPV 10.3 fL (9.4-12.3) 05/30/22 08:31 Immature Gran % (Auto) 0.9 % 05/28/22 07:00 Neut % (Auto) 67.7 % 05/28/22 07:00 Lymph % (Auto) 18.8 % 05/28/22 07:00 [place] % (Auto) 11.3 % 05/28/22 07:00 Eos % (Auto) 1.0 % 05/28/22 07:00 Baso % (Auto) 0.3 % 05/28/22 07:00 Neut # (Auto) 4.70 K/uL (1.4-6.5) 05/28/22 07:00 Lymph # (Auto) 1.30 K/uL (1.2-3.4) 05/28/22 07:00 [place] # (Auto) 0.78 K/uL (0.24-0.82) 05/28/22 07:00 Eos # (Auto) 0.07 K/uL (0-0.50) 05/28/22 07:00 Baso # (Auto) 0.02 K/uL (0-0.2) 05/28/22 07:00 Immature Gran # (Auto) 0.06 K/uL (0.00-0.02) H 05/28/22 07:00 Sodium 136 mmol/L (136-145) 05/30/22 08:31 Potassium 3.7 mmol/L (3.5-5.1) 05/30/22 08:31 Chloride 99 mmol/L (98-107) 05/30/22 08:31 Carbon Dioxide 33 mmol/L (21-32) H 05/30/22 08:31 Anion Gap 4 (3-11) 05/30/22 08:31 BUN 13 mg/dl (6-23) 05/30/22 08:31 Creatinine 0.87 mg/dl (0.6-1.2) 05/30/22 08:31 Est Cr Clr Drug Dosing 50.4 ml/min 05/30/22 08:31 Est GFR ( Amer) 71.4 ml/min 05/30/22 08:31 Est GFR (Non-Af Amer) 61.6 ml/min 05/30/22 08:31 BUN/Creatinine Ratio 14.9 (10-20) 05/30/22 08:31 Glucose 89 mg/dl (70-99(Fasting)) 05/30/22 08:31 Lactate 1.0 mmol/L (0.4-2.0) 05/27/22 13:00 Calcium 8.0 mg/dl (8.5-10.1) L 05/30/22 08:31 Phosphorus 3.1 mg/dl (2.5-4.9) 05/30/22 08:31 Magnesium 2.0 mg/dl (1.7-2.4) 05/30/22 08:31 Total Bilirubin 0.3 mg/dl (0.2-1.0) 05/28/22 07:00 Direct Bilirubin 0.1 mg/dl (0-0.2) 05/27/22 13:00 AST 11 U/L (13-39) L 05/28/22 07:00 ALT 7 U/L (7-52) 05/28/22 07:00 Alkaline Phosphatase 38 U/L (34-104) 05/28/22 07:00 Troponin I High Sens 15.2 pg/ml (0-14) H 05/27/22 13:00 Total Protein 4.9 gm/dl (6.0-8.3) L D 05/28/22 07:00 Albumin 2.8 gm/dl (3.4-5.0) L 05/28/22 07:00 Globulin 2.1 gm/dl (2.5-4.0) L 05/28/22 07:00 Albumin/Globulin Ratio 1.3 (0.9-2) 05/28/22 07:00 Procalcitonin 24.51 ng/ml (0-0.5) H 05/27/22 13:00 Urine Color Yellow 05/27/22 17:57 Urine Appearance Clear (Clear) 05/27/22 17:57 Urine pH 5.5 (4.5-7.5) 05/27/22 17:57 Ur Specific [place] 1.013 (1.000-1.030) 05/27/22 17:57 Urine Protein 1+ (Negative) H 05/27/22 17:57 Urine Glucose (UA) Negative (Negative) 05/27/22 17:57 Urine Ketones Negative (Negative) 05/27/22 17:57 Urine Blood 1+ (Negative) H 05/27/22 17:57 Urine Nitrite Negative (Negative) 05/27/22 17:57 Urine Bilirubin Negative (Negative) 05/27/22 17:57 Urine Urobilinogen Negative (Negative) 05/27/22 17:57 Ur Leukocyte Esterase Trace (Negative) H 05/27/22 17:57 Urine WBC (Auto) 10-30 /hpf (0-5) H 05/27/22 17:57 Urine RBC (Auto) 5-10 /hpf (0-4) H 05/27/22 17:57 U Hyaline Cast (Auto) 1-5 /lpf (0-5) 05/27/22 17:57 U Epithel Cells (Auto) >30 /lpf (0-5) H 05/27/22 17:57 Urine Bacteria (Auto) Negative (Negative) 05/27/22 17:57 SARS-CoV-2, RNA, NAAT NEGATIVE (NEGATIVE) 05/27/22 13:00 Impressions Chest X-Ray 05/27/22 12:38 XR chest 1V portable CLINICAL HISTORY: Sepsis COMPARISON STUDY: Chest radiograph May 25, 2022. FINDINGS: Lung volumes are normal. Lungs are clear. There is no pneumothorax or pleural effusion. Cardiac size is normal. Mediastinal contours are normal. There is no evidence for pulmonary edema. Biapical scarring is incidentally noted. IMPRESSION: No acute cardiopulmonary findings. ACT 112: Negative or not required by law. Electronically signed by: Ed Singh M.D. 05/27/2022 12:57 PM Hospital Course (1) Bacteremia: E. coli bacteremia Secondary to UTI Blood Culture: E. coli X2 Repeat blood cultures No growth to date Continue IV Rocephin Appreciate ID input PT/OT eval completed Plan to discharge on cephalexin 500 mg 3 times daily until 06/03/2022 (2) Acute UTI (urinary tract infection): - likely source of infection and bacteremia -Urine culture growing E. coli Repeat urine culture negative to date Continue antibiotics as above Hypomagnesemia Replete electrolytes as needed Monitor (3) CAD (coronary artery disease): - continue home medications (4) HTN (hypertension): - continue home meds (5) HLD (hyperlipidemia): - continue statin (6) GERD (gastroesophageal reflux disease): - continue PPI Plan DVT Px: Lovenox SQ Code Status: Full Code Total Time Total Time Spent Total Time Spent (In Minutes): 40 minutes Discharge Plan Discharge Items Patient Disposition: Home - Self-Care Reason For Visit: BACTEREMIA Discharge Diagnosis: Escherichia coli bacteremia Urinary tract infection Hypomagnesemia Activity: Per Instructions section Exercise/Sports: Gradually increase as tolerated Non-emergency contact: Primary Care Provider Call non-emergency contact if: you have any medication questions, your symptoms worsen, your pain is concerning for you and you have a fever Follow-up/Referrals: Best Simpson MD [Primary Care Provider] - (Date & Time 06/02/2022 11:20 AM Provider Cindi Garcia MD Department Family Medicine [facility] Diet: Heart Healthy Addtl Attending Provider Instructions: Follow-up with your primary care physician on 06/02/2022 11:20 AM as scheduled --- Complete the antibiotic course: Cephalexin 500 mg 3 times a day until 06/03/2022 as recommended by your infectious disease specialist. Seek immediate medical attention if your symptoms reoccur or worsen Please take all medications as instructed on discharge list below. Please call if you have any questions or problems. You can reach a [facility] hospitalist on duty at [facility] 24 hours a day by calling [phone] Pending Studies at Discharge: No Stand-Alone Forms: My [facility], Smoking Cessation Medications and DC Order Prescriptions: Continued aspirin 81 mg Tablet,Delayed Release (Dr/Ec) 81 mg PO PM Qty: 0 simvastatin 20 mg Tablet 20 mg PO HS Qty: 0 omeprazole 20 mg Tablet,Delayed Release (Dr/Ec) 20 mg PO DAILY Qty: 0 escitalopram oxalate 10 mg tablet 10 mg PO DAILY metoprolol succinate [Toprol XL] 50 mg tablet extended release 24 hr 50 mg PO DAILY Qty: 30 0RF cephalexin 500 mg capsule 500 mg PO TID 4 Days Qty: 12 0RF Rx Instructions: Start taking from 05/31/22. Discontinued atenolol 25 mg tablet 25 mg PO QAM Discharge Orders: Discharge Order (Routine); Ordered 05/30/22 Ordered By: Jarek Bunch Admission Data Admit Date/Time: 05/27/22 13:21 Attending Provider: Jarek Bunch Admit Provider: Darrius Ortega Primary Care Provider: Best Simpson Other Providers: Darrius Ortega ; Willie Sabillon ; Kiana Hou ; Delvin Awad I. ; Shankar Davenport II ; Desiree Hinson ; Maxime Raman ; Celestino Worthington ; Alisha Buenrostro Other Interventions: Discharge Summary Assessment (RN) Last Done: 05/30/22 13:19
[2022-05-30] MEDS: ENOXAPARIN INJ 40 MG/0.4 ML SYR SQ SCH (14:41)
== END 2022-05-30 17:15 | disposition home or self-care (01) | DRG 872 ==
LOC: ED 12:27 → 3E 13:21 → SUATTDRO 13:21 → 3E 15:27